=== PATIENT | female | born 1995 | race Caucasian/White ===

== ENCOUNTER 2020-10-13 10:05 | Outpatient (CLI) | payer OTHER, SELFPAY ==
--- NOTE | ~2020-10-13 | US_ITS ---
EXAMINATION: US venous doppler [facility] EXAM DATE: 10/13/2020 10:45 INDICATION: Bilateral leg pain and swelling. TECHNIQUE: Multiple grayscale, color flow and Doppler images of the lower extremity deep venous syste ms bilaterally were obtained and reviewed. There is no prior study for comparison. FINDINGS: Right side: The right common femoral, femoral and profunda veins demonstrate normal color flow, respi ratory variation, augmentation and compressibility. Compressibility, color flow confirmed within the right popliteal, posterior tibial, peroneal, and greater saphenous veins. Left side: The left common femoral, femoral and profunda veins demonstrate normal color flow, respira tory variation, augmentation and compressibility. Compressibility, color flow confirmed within the l eft popliteal, posterior tibial, peroneal, and greater saphenous veins. IMPRESSION: No lower extremity deep venous thrombosis bilaterally. Reviewed, dictated and finalized at location A.
== END 2020-10-13 10:06 | disposition home or self-care (01) ==
PROVIDERS: Visit Provider Obstetrics & Gynecology
DX: R22.43 Localized swelling, mass and lump, lower limb, bilateral (principal)
CPT/HCPCS: 93970

== ENCOUNTER 2020-11-23 09:43 | Outpatient (RCR) | payer OTHER, SELFPAY ==
[2020-10-18 12:25] VITALS: BP 115/69; PULSE 100
[2020-10-26 10:50] VITALS: BP 105/64; PULSE 114
[2020-10-29 09:50] VITALS: BP 117/71; PULSE 108
[2020-11-01 11:10] VITALS: BP 123/82
[2020-11-05 11:59] VITALS: BP 120/68; PULSE 110
[2020-11-08 12:51] VITALS: BP 107/67; PULSE 106
[2020-11-12 13:10] VITALS: BP 112/70; PULSE 117
--- NOTE | ~2020-11-23 | US_ITS ---
EXAMINATION: US OB follow up DATE: 11/01/2020 11:27 INDICATION: Gestational diabetes. Assess well being and amniotic fluid index during third trime ster . TECHNIQUE: Real-time ultrasound of the pelvis was performed. The interpreting radiologist was not pre sent for the study. COMPARISON: None. FINDINGS: There is a single living fetus in vertex presentation. The placenta is anterior. heart rate is 171 beats per minute (bpm). The amniotic fluid index is 18.7 cm, which is normal (5th%-95%: 8.1-24. 8 cm at 34 weeks estimated gestational age). The following biometric data were obtained: BPD: 8.7 cm -> 35 weeks 2 days Head circumference: 31.0 cm -> 34 weeks 5 days Abdominal circumference: 32.2 cm -> 36 weeks 1 days Femur length: 6.5 cm -> 33 weeks 2 days These measurements are concordant. Head circumference to abdominal circumference ratio: 0.96 (normal range 0.93-1.11). Estimated weight: 2610 g (+/-) 391 g or 5 lbs. 12 oz. (+/-) 14 oz. IMPRESSION: 1. Single living fetus in vertex presentation with heart rate of 171 bpm. 2. Normal amniotic fluid index of 18.7 cm. 3. Estimated weight is 63rd percentile by Hadlock criteria when 12/09/2020 is used as the estima romelia date of delivery (PAM). Please correlate with clinical information or earlier ultrasounds for mos t accurate PAM. Reviewed, dictated and finalized at location A. IMPRESSION: 1. Single living fetus in vertex presentation with heart rate of 171 bpm. 2. Normal amniotic fluid index of 18.7 cm. 3. Estimated weight is 63rd percentile by Hadlock criteria when 12/09/2020 is used as the estimated date of delivery (PAM). Please correlate with clinica l information or earlier ultrasounds for most accurate PAM.
[2020-11-23 10:27] VITALS: BP 136/82; PULSE 110
== END 2020-11-30 07:41 | disposition home or self-care (01) ==
LOC: ANHOBOP 09:43
PROVIDERS: Visit Provider Obstetrics & Gynecology
DX: O24.913 Unspecified diabetes mellitus in pregnancy, third trimester (principal); Z3A.32 32 weeks gestation of pregnancy; Z3A.33 33 weeks gestation of pregnancy; O24.419 Gestational diabetes mellitus in pregnancy, unspecified control; Z3A.34 34 weeks gestation of pregnancy; Z3A.35 35 weeks gestation of pregnancy; Z3A.36 36 weeks gestation of pregnancy; Z3A.37 37 weeks gestation of pregnancy
CPT/HCPCS: 59025; 76816; 84112

== ENCOUNTER 2020-11-23 21:10 | Outpatient (CLI) | payer OTHER, SELFPAY | END 2020-11-23 21:11 | disposition home or self-care (01) | LOC: ANHOBOP 21:47 | PROVIDERS: Visit Provider Obstetrics & Gynecology | DX: O13.9 Gestational [pregnancy-induced] hypertension without significant proteinuria, unspecified trimester (principal); Z3A.00 Weeks of gestation of pregnancy not specified | CPT/HCPCS: 59025; 84112 ==

== ENCOUNTER 2020-11-25 06:16 | Inpatient (IN) | payer OTHER, SELFPAY ==
[2020-11-25] VITALS (69 sets, daily range): BP systolic 99–139; BP diastolic 56–104; PULSE 78–122; RESP 18–20; TEMP 36.7–37.2; O2SAT 98–100
[2020-11-25] MEDS: OXYTOCIN 30 UNITS/NS 500 ML 30 UNITS/500 ML BAG IV CONT (07:15)
[2020-11-25] MEDS: LACTATED RINGERS 1,000 ML 125 ML IV CONT ×2 (07:15→10:06)
[2020-11-25] MEDS: AMPICILLIN 2 GM/NS 100 ML 2 GM/100 ML BAG IVPB (07:15)
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
[2020-11-25 07:24] LABS: Glucose Point of Care 117 mg/dl (65-105)
--- NOTE | 2020-11-25 07:29 | LDADM ---
This patient, Mary Grace Sandoval, was admitted to Labor/Delivery/Recovery 104 on 11/25/20 at 06:16. Plans for labor, pain management and were discussed with patient. Patient/family oriented to hospital policies and general routines including ID bracelet, bed and alarms, visiting hours, pain management, procedures, bathroom and other care routines, personal items, smoking policy, room service/diet and guest tray routines, security routines, call light and visiting hours. Patient/Family are encouraged to report perceived risks to care and to ask questions if they do not understand what they are told or what they should do. See OBIX for further documentation.
[2020-11-25 07:33] LABS: Basophils Absolute Auto 0.1 K/mm3 (0.0-0.1); Basophils Percent Auto 0.5 % (0.2-1.2); Eosinophils Absolute Auto 0.4 K/mm3 (0-0.3); Eosinophils Percent Auto 3.7 % (0-4.4); Hematocrit 37.4 % (37.0-47.0); Hemoglobin 13.1 g/dL (12.0-15.0); Immature Granulocyte Absolute 0.08 K/mm3 (0.00-0.031); Immature Granulocyte Percent A 0.8 % (0-0.5); Lymphocytes Absolute Auto 1.86 K/mm3 (0.9-3.2); Lymphocytes Percent Auto 18.6 % (18.3-44.2); Mean Corpuscular Hemoglobin 31.3 pg (26-34); Mean Corpuscular Volume 89.3 fl (80-100); Mean Platelet Volume 10.6 fl (7.4-10.4); Monocytes Absolute Auto 0.9 K/mm3 (0.1-0.6); Monocytes Percent Auto 8.7 % (2.6-8.5); Neutrophils Absolute Auto 6.8 K/mm3 (1.3-6.7); Neutrophils Percent Auto 67.7 % (45.5-73.1); Platelet Count Result 222 k/mm3 (150-375); Red Blood Count 4.19 M/mm3 (4.2-5.4); Red Cell Distribution Width 13.1 % (11.5-14.5)
[2020-11-25 08:52] LABS: Hepatitis B Surface Antigen Negative (Negative)
[2020-11-25 09:01] LABS: Rubella IgG Antibody 10.1 IU/ML
--- NOTE | 2020-11-25 10:09 | WPDANESEPP ---
Anes - Eval Pre Procedure Procedure: Labor epidural Date/Time: 11/25/20 10:09 Surgeon: Evelyn Preop Diagnosis: pain during labor Pre Op Diagnosis: iol Patient Data Age: 25 Gender: F Height: 1.63 m Weight: 102.5 kg Last Vital Signs Pulse 104 H 11/25/20 10:07 BP 118/68 11/25/20 10:07 Pulse Ox 100 11/25/20 10:05 Allergies Allergy/AdvReac Type Severity Reaction Status Date / Time No Known Allergies Allergy Verified 11/25/20 07:48 Home Medications Medication Instructions Recorded Confirmed Type Humulin N NPH U-100 Insulin 20 unit SUBCUT QAM 10/29/20 11/25/20 History PNV cmb#95-ferrous fumarate-FA 1 tablet PO DAILY 10/29/20 11/25/20 History [] insulin lispro [Humalog U-100 14 unit SUBCUT QAM 10/29/20 11/25/20 History Insulin] insulin lispro [Humalog U-100 14 unit SUBCUT QPM 10/29/20 11/25/20 History Insulin] ergocalciferol (vitamin D2) 1,250 mcg PO WEEKLY 11/12/20 11/25/20 History [Vitamin D2] insulin NPH isoph U-100 human 14 unit SUBCUT HS 11/12/20 11/25/20 History [Humulin N NPH U-100 Insulin] Laboratory Tests 11/25/20 11/25/20 11/25/20 07:20 07:21 07:21 WBC 10.0 K/mm3 K/mm3 (4.5-10.0) RBC 4.19 M/mm3 L M/mm3 (4.2-5.4) Hgb 13.1 g/dL g/dL (12.0-15.0) Hct 37.4 % % (37.0-47.0) MCV 89.3 fl fl (80-100) MCH 31.3 pg pg (26-34) MCHC 35.0 g/dl g/dl (32-36) RDW 13.1 % % (11.5-14.5) Plt Count 222 k/mm3 k/mm3 (150-375) MPV 10.6 fl H fl (7.4-10.4) Immature Gran % (Auto) 0.8 % H % (0-0.5) Neut % (Auto) 67.7 % % (45.5-73.1) Lymph % (Auto) 18.6 % % (18.3-44.2) [place] % (Auto) 8.7 % H % (2.6-8.5) Eos % (Auto) 3.7 % % (0-4.4) Baso % (Auto) 0.5 % % (0.2-1.2) Lymph # (Auto) 1.86 K/mm3 K/mm3 (0.9-3.2) [place] # (Auto) 0.9 K/mm3 H K/mm3 (0.1-0.6) Eos # (Auto) 0.4 K/mm3 H K/mm3 (0-0.3) Baso # (Auto) 0.1 K/mm3 K/mm3 (0.0-0.1) Abs Immat Gran (auto) 0.08 K/mm3 H K/mm3 (0.00-0.031) Absolute Neuts (auto) 6.8 K/mm3 H K/mm3 (1.3-6.7) Absolute Nucleated RBC 0.0 K/mm3 K/mm3 (0.0-0.012) Nucleated RBC % 0.0 % % (0.0-0.2) POC Capillary Glucose 117 mg/dl H mg/dl (65-105) RPR Pending Hep Bs Antigen Rubella IgG Antibody Blood Type Antibody Screen 11/25/20 11/25/20 11/25/20 07:21 07:21 07:21 WBC RBC Hgb Hct MCV MCH MCHC RDW Plt Count MPV Immature Gran % (Auto) Neut % (Auto) Lymph % (Auto) [place] % (Auto) Eos % (Auto) Baso % (Auto) Lymph # (Auto) [place] # (Auto) Eos # (Auto) Baso # (Auto) Abs Immat Gran (auto) Absolute Neuts (auto) Absolute Nucleated RBC Nucleated RBC % POC Capillary Glucose RPR Hep Bs Antigen Negative (Negative) Rubella IgG Antibody 10.1 IU/ML IU/ML (10 - ) Blood Type B Positive Antibody Screen Negative Patient hx anesthesia problems: none Family hx anesthesia problems: none PMFSH Past Medical History Medical History (Updated 11/25/20 @ 10:10 by Юлия Yao CRNA) IUP (intrauterine ), incidental Family History Family History Grandparent Carcinoma of colon Diabetes mellitus Mother Family history of malignant neoplasm of cervix Sibling Down syndrome Social History Social History Smoking status: Never smoker Alcohol intake: current
[2020-11-25 10:25] LABS: Rapid Plasma Reagin Non-Reactive (NonReactive)
[2020-11-25] MEDS: AMPICILLIN 1 GM/NS 50 ML 1 GM/50 ML BAG IVPB (11:27)
--- NOTE | 2020-11-25 11:30 | P.PNOB_ITS ---
OB - PN: Subj Subjective Date/time seen: 11/25/20 11:30 cx rim/fhts reassuring OB - PN: Obj Data Labs CBC & Chem 7: 11/25/20 07:21 Labs: Laboratory Results - last 24 hr 11/25/20 11/25/20 11/25/20 07:20 07:21 07:21 WBC 10.0 RBC 4.19 L Hgb 13.1 Hct 37.4 MCV 89.3 MCH 31.3 MCHC 35.0 RDW 13.1 Plt Count 222 MPV 10.6 H Immature Gran % (Auto) 0.8 H Neut % (Auto) 67.7 Lymph % (Auto) 18.6 [place] % (Auto) 8.7 H Eos % (Auto) 3.7 Baso % (Auto) 0.5 Lymph # (Auto) 1.86 [place] # (Auto) 0.9 H Eos # (Auto) 0.4 H Baso # (Auto) 0.1 Abs Immat Gran (auto) 0.08 H Absolute Neuts (auto) 6.8 H Absolute Nucleated RBC 0.0 Nucleated RBC % 0.0 POC Capillary Glucose 117 H RPR Non-reactive Hep Bs Antigen Rubella IgG Antibody Blood Type Antibody Screen 11/25/20 11/25/20 11/25/20 07:21 07:21 07:21 WBC RBC Hgb Hct MCV MCH MCHC RDW Plt Count MPV Immature Gran % (Auto) Neut % (Auto) Lymph % (Auto) [place] % (Auto) Eos % (Auto) Baso % (Auto) Lymph # (Auto) [place] # (Auto) Eos # (Auto) Baso # (Auto) Abs Immat Gran (auto) Absolute Neuts (auto) Absolute Nucleated RBC Nucleated RBC % POC Capillary Glucose RPR Hep Bs Antigen Negative Rubella IgG Antibody 10.1 Blood Type B Positive Antibody Screen Negative OB - PN A/P Time Spent With Patient Time: Total time spent is greater than 50% in coordination of care (as documented) at patient's floor/unit and/or counseling patient:
[2020-11-25 11:34] LABS: Glucose Point of Care 97 mg/dl (65-105)
--- NOTE | 2020-11-25 13:49 | P.PCNOB_ITS ---
OB - Delivery Note Procedure Delivery date: 11/25/20 Procedure: mil events: Gestational Diabetes Intrapartal events: None Induction method: AROM Delivery augmentation: pitocin Delivery monitor: external FHT Route of delivery: Laceration Description: Perineal - 1st Degree Delivery repair: vicryl Specimen: No Quantitative Blood Loss (ml): 58 Anesthesia type: Epidural Disposition: floor Complications: amp x 2 for gbs [place] Baby Date of : 11/25/20 Time of : 13:41 Weeks of gestation at delivery: 38 Infant gender: Female Weight (pounds): 6 Weight (ounces): 12 presentation: vertex position: Right Occiput Anterior Placenta delivery description: Spontaneous cord vessel description: 3 Vessels score one minute: 9 score five minutes: 9
[2020-11-25] MEDS: OXYTOCIN 30 UNITS/NS 500 ML 30 UNITS/500 ML BAG 125 UNITS IV CONT (14:20)
[2020-11-25] MEDS: WITCH HAZEL 40 PADS 1 PAD (16:15)
[2020-11-25] MEDS: BENZOCAINE 20% AER SPR (*SP) 56 GM CAN 1 SPRAY (16:15)
[2020-11-25] MEDS: IBUPROFEN 600 MG TABLET PO (19:03)
--- NOTE | 2020-11-25 19:39 | PC.NURSE ---
1626 Pt admitted to room 287 per wheelchair after vaginal delivery of viable female today at [address] Carey Nixon. Mother is a now. FOB present; Couple oriented to room, staffing and procedures; pt's VSS and assessment WNL.
[2020-11-26] MEDS: IBUPROFEN 600 MG TABLET PO ×3 (01:43→20:53)
[2020-11-26 04:00] VITALS: BP 105/65; PULSE 76; RESP 18; TEMP 36.6; O2SAT 99
[2020-11-26 05:45] LABS: Hematocrit 35.4 % (37.0-47.0); Hemoglobin 12.4 g/dL (12.0-15.0)
--- NOTE | 2020-11-26 06:38 | PM.OBPNVD ---
OB - PN: Subj Subjective Date/time seen: 11/26/20 06:38 Patient comments: no complaints and pain well controlled baby status: doing well and nursing well OB - PN: Obj Data Labs CBC & Chem 7: 11/26/20 04:13 Labs: Laboratory Results - last 24 hr 11/25/20 11/25/20 11/25/20 07:20 07:21 07:21 WBC 10.0 RBC 4.19 L Hgb 13.1 Hct 37.4 MCV 89.3 MCH 31.3 MCHC 35.0 RDW 13.1 Plt Count 222 MPV 10.6 H Immature Gran % (Auto) 0.8 H Neut % (Auto) 67.7 Lymph % (Auto) 18.6 [place] % (Auto) 8.7 H Eos % (Auto) 3.7 Baso % (Auto) 0.5 Lymph # (Auto) 1.86 [place] # (Auto) 0.9 H Eos # (Auto) 0.4 H Baso # (Auto) 0.1 Abs Immat Gran (auto) 0.08 H Absolute Neuts (auto) 6.8 H Absolute Nucleated RBC 0.0 Nucleated RBC % 0.0 POC Capillary Glucose 117 H RPR Non-reactive Hep Bs Antigen Rubella IgG Antibody Blood Type Antibody Screen 11/25/20 11/25/20 11/25/20 07:21 07:21 07:21 WBC RBC Hgb Hct MCV MCH MCHC RDW Plt Count MPV Immature Gran % (Auto) Neut % (Auto) Lymph % (Auto) [place] % (Auto) Eos % (Auto) Baso % (Auto) Lymph # (Auto) [place] # (Auto) Eos # (Auto) Baso # (Auto) Abs Immat Gran (auto) Absolute Neuts (auto) Absolute Nucleated RBC Nucleated RBC % POC Capillary Glucose RPR Hep Bs Antigen Negative Rubella IgG Antibody 10.1 Blood Type B Positive Antibody Screen Negative 11/25/20 11/26/20 11:29 04:13 WBC RBC Hgb 12.4 Hct 35.4 L MCV MCH MCHC RDW Plt Count MPV Immature Gran % (Auto) Neut % (Auto) Lymph % (Auto) [place] % (Auto) Eos % (Auto) Baso % (Auto) Lymph # (Auto) [place] # (Auto) Eos # (Auto) Baso # (Auto) Abs Immat Gran (auto) Absolute Neuts (auto) Absolute Nucleated RBC Nucleated RBC % POC Capillary Glucose 97 RPR Hep Bs Antigen Rubella IgG Antibody Blood Type Antibody Screen OB - PN A/P Plan day: 1 Plan: routine care Time Spent With Patient Time: Total time spent is greater than 50% in coordination of care (as documented) at patient's floor/unit and/or counseling patient: Time with patient: less than 15 minutes Review of Systems Review of Systems: All systems reviewed & are unremarkable except as noted in HPI and below Exam Const: General: no acute distress Eyes: General: appearance normal, both eyes and all related structures Neck: Neck: supple and no JVD Thyroid: thyroid normal Resp: Effort & Inspection: normal respiratory effort Auscultation: clear to auscultation bilaterally Cardio: Rate: regular rate Rhythm: regular rhythm GI: Inspection: non-distended GI Palp: Yes Soft to palpation, No Tenderness to palpation present (GI) and No Guarding due to palpation present (GI) Auscultation: normal bowel sounds : General: Yes bladder normal to palpation External Female Exam: normal external appearance Speculum Exam - Vagina: normal vaginal discharge and No vaginal bleeding Speculum Exam - Cervix: nontender Bimanual exam- vagina & uterus: bladder normal to palpation and No Cervical tenderness present OB/external & speculum: No vaginal bleeding Skin: General skin exam: no rashes or lesions noted Extrem: General: normal to inspection and no edema Psych: Mental Status: mental status grossly normal Affect: normal affect
[2020-11-26 09:00] VITALS: BP 112/69; PULSE 77; RESP 18; TEMP 36.3; O2SAT 100
--- NOTE | 2020-11-26 09:47 | WPDANLDPN2 ---
Anes-Prog Note L&D Date/Time: 11/26/20 09:47 Comfortable throughout: labor and delivery Neuraxial method: epidural Epidural/Spinal procedure site: clean & non-tender Neuro status: Neuro function grossly intact. Cardiovascular status: normal Respiratory status: normal Airway patency: baseline Mental status: baseline Post-Op hydration status: normal Vital Signs: Last Vital Signs Temp 36.6 C 11/26/20 04:00 Pulse 76 11/26/20 04:00 Resp 18 11/26/20 04:00 BP 105/65 11/26/20 04:00 Pulse Ox 99 11/26/20 04:00 Pain score (VAS): 07/11 I/O: Intake & Output 11/25/20 11/26/20 11/26/20 23:59 07:59 15:59 Intake Total 1500 Balance 1500 Post-procedural complaints: none Patient feedback: Patient satisfied with anesthetic care.
[2020-11-26 12:00] VITALS: BP 112/69; PULSE 83; RESP 18; TEMP 36.5; O2SAT 99
[2020-11-26] MEDS: WITCH HAZEL 40 PADS 1 PAD TOPICAL (16:55)
[2020-11-26 19:00] VITALS: BP 114/66; PULSE 77; RESP 18; TEMP 36.5
--- NOTE | 2020-11-26 19:00 | PC.NURSE ---
Patient viewed the discharge video Mother & Baby Care, The First Two Weeks online. Patient was given the opportunity and encouraged to ask questions. Patient verbalized understanding of information shared and has been given the mother/baby guide for home reference.
[2020-11-27] MEDS: IBUPROFEN 600 MG TABLET PO (04:35)
--- NOTE | 2020-11-27 07:09 | P.DS_ITS ---
DS: Admitting Diagnosis Admitting Diagnosis Admitting Diagnosis: Term intrauterine with insulin-dependent diabetes DS: Summary Hospital Course Hospital Course: the patient was admitted at term for induction of labor secondary to gestational diabetes that required insulin. She underwent successful spontaneous vaginal delivery. Her hospital course was unremarkable. She was up, ambulating, voiding that difficulty, eating regular diet, and generally without complaints. Time Spent with Patient Time attestation: Total time spent providing and/or coordinating discharge services: Exam Const: General: no acute distress Eyes: General: appearance normal, both eyes and all related structures Neck: Neck: supple and no JVD Thyroid: thyroid normal Resp: Effort & Inspection: normal respiratory effort Auscultation: clear to auscultation bilaterally Cardio: Rate: regular rate Rhythm: regular rhythm GI: Inspection: non-distended GI Palp: Yes Soft to palpation, No Tenderness to palpation present (GI) and No Guarding due to palpation present (GI) Auscultation: normal bowel sounds : General: Yes bladder normal to palpation External Female Exam: normal external appearance Speculum Exam - Vagina: normal vaginal discharge and No vaginal bleeding Speculum Exam - Cervix: nontender Bimanual exam- vagina & uterus: bladder normal to palpation and No Cervical tenderness present OB/external & speculum: No vaginal bleeding Skin: General skin exam: no rashes or lesions noted Extrem: General: normal to inspection and no edema Psych: Mental Status: mental status grossly normal Affect: normal affect Discharge Plan Discharge Attending physician on discharge: Mark Sweeney Discharging Clinician: Mark Sweeney Patient Disposition: Home, Self-Care Activity: may shower, no driving and pelvic rest Diet: diabetic Wound Care Instructions: follow printed instructions Patient Instructions: Antibiotic Form Stand Alone Forms: General Discharge Information Follow-up/Referrals: Mark Sweeney MD [Physician] - Discharge Medications: Discontinued insulin lispro [Humalog U-100 Insulin] 100 unit/mL Solution 14 unit SUBCUT QAM RF: 0 Humulin N NPH U-100 Insulin 20 unit subcut QAM RF: 0 insulin lispro [Humalog U-100 Insulin] 100 unit/mL Solution 14 unit SUBCUT QPM RF: 0 Humulin N NPH U-100 Insulin 100 unit/mL Suspension 14 unit SUBCUT HS RF: 0 No Action PNV cmb#95-ferrous fumarate-FA [] 28 mg iron- 800 mcg Tablet 1 tablet PO DAILY RF: 0 ergocalciferol (vitamin D2) [Vitamin D2] 1,250 mcg (50,000 unit) Capsule 1,250 mcg PO WEEKLY RF: 0 Date of admission: 11/25/20 06:16 Primary Care Provider: PHYSICIAN,ELECTRONICS TECHNICIAN APPRENTICE Admitting Provider: Mark Sweeney Attending physician on admission: Mark Sweeney Condition: Stable
[2020-11-27 07:15] VITALS: BP 122/69; PULSE 81; RESP 18; TEMP 36.3; O2SAT 100
[2020-11-27] MEDS: WITCH HAZEL 40 PADS 1 PAD TOPICAL (08:55)
[2020-11-27] MEDS: BENZOCAINE 20% AER SPR (*SP) 56 GM CAN 1 SPRAY TOPICAL (08:55)
[2020-11-27] MEDS: ACETAMINOPHEN 325 MG TABLET 650 MG PO (08:56)
[2020-11-27] MEDS: DOCUSATE SODIUM 100 MG CAPSULE PO (08:56)
[2020-11-30 11:26] VITALS: BP 141/83; PULSE 85; RESP 18; TEMP 37.2; O2SAT 100
== END 2020-11-27 11:35 | disposition home or self-care (01) | DRG 560 ==
LOC: ANHLDR 07:18 → ANHOB2 16:31
PROVIDERS: Obstetrics & Gynecology; Admitting Provider Obstetrics & Gynecology; Visit Provider Obstetrics & Gynecology
DX: O24.429 Gestational diabetes mellitus in childbirth, unspecified control (principal); O70.0 First degree perineal laceration during delivery; O24.424 Gestational diabetes mellitus in childbirth, insulin controlled; O98.52 Other viral diseases complicating childbirth; B00.9 Herpesviral infection, unspecified; Z3A.38 38 weeks gestation of pregnancy; Z37.0 Single live birth
CPT/HCPCS: 36415; 82948; 85014; 85018; 85025; 86592; 86762; 86850; 86900; 86901; 87340; A9270; J0290; J2590; J2795; J7120

== ENCOUNTER 2024-01-22 17:09 | Emergency (ER) | payer OTHER, SELFPAY ==
--- NOTE | ~2024-01-22 | CT_ITS ---
CT OF right knee EXAMINATION: CT knee RT w con DATE: 01/22/2024 19:58 INDICATION: Severe knee pain following nail puncture in knee. TECHNIQUE: Computed tomography (CT) of the right knee was performed without intravenous contrast. Aut omated exposure control and iterative reconstruction technique were employed. The dose-length product was 406.91 mGy-cm. COMPARISON: None FINDINGS: Normal mineralization. No fracture or dislocation. No lytic or blastic lesion. No osseous erosion or suspicious periosteal change. Moderate volume knee joint fluid with synovial enhancement. No obvious internal derangement of the knee. No radiopaque foreign body. No definite skin defect correlating wit h the nail injury is appreciated. IMPRESSION: No acute osseous finding in the right knee. Moderate volume knee joint effusion with synovial enhancement, indicative of inflammation. No foreign body, no definite tract extending to the joint capsule, no subcutaneous gas. Reviewed, dictated and finalized at location K. IMPRESSION: No acute osseous finding in the right knee. Moderate volume knee joint effusion with synovial enhancement, indicative of in flammation. No foreign body, no definite tract extending to the joint capsule, no subcutane ous gas.
[2024-01-22 17:11] VITALS: BP 128/76; PULSE 114; RESP 17; TEMP 36.8; O2SAT 100
--- NOTE | 2024-01-22 18:20 | ED.WOUNDLAC ---
HPI - Wound/Laceration General Chief Complaint: Wound/Laceration Stated Complaint: wound right leg Time Seen by Provider: 01/22/24 18:06 History of Present Illness HPI narrative: 28-year-old female presenting with right knee pain. Patient states that she was working outside with her grandpa when a nail flew out of the piece of wood and struck her in her right knee. States that it fell out on its own and blood for a little while but she is sound everything was fine. She then was able to go to work. States that after about an hour she developed severe right knee pain especially with weight-bearing and ambulation. States she has severe pain when she tries to bend it. She went to urgent care who updated her tetanus within advised that she come to the ED for further evaluation. No further injuries or complaints. Related Data Allergies Allergy/AdvReac Type Severity Reaction Status Date / Time amoxicillin AdvReac Rash Verified 01/22/24 18:09 Review of Systems Review of Systems: All systems reviewed & are unremarkable except as noted in HPI and below PMFSH Past Medical History Medical History IUP (intrauterine ), incidental Family History Family History Grandparent Carcinoma of colon Diabetes mellitus Mother Family history of malignant neoplasm of cervix Sibling Down syndrome Social History Social History Smoking status: Never smoker Alcohol intake: current Substance use: never Gender identity (if verbalized by the patient): Female Spiritual care concerns: No Exam Narrative: GENERAL: Well-appearing, in no acute distress, pleasant cooperative HEAD: Normocephalic, atraumatic. EYES: PERRLA and EOMI. ENT: Grossly unremarkable NECK: Supple. CHEST: No respiratory distress. HEART: Regular rate and rhythm EXTREMITIES: small puncture wound medial to the right knee, tender over the patellar tendon and diffusely anteriorly; no overlying erythema or warmth; knee extension is intact, flexion is somewhat limited secondary to pain SKIN: Warm, dry, as above NEURO: No focal deficits. Alert and oriented x3. PSYCH: Normal mood and affect. Course Vital Signs Vital signs: Vital Signs Temperature 98.2 F 01/22/24 17:11 Pulse Rate 114 H 01/22/24 17:11 Respiratory Rate 17 01/22/24 17:11 Blood Pressure 128/76 01/22/24 17:11 Pulse Oximetry 100 01/22/24 17:11 Oxygen Delivery Room Air 01/22/24 17:11 Temperature 98.2 F 01/22/24 17:11 Pulse Rate 114 H 01/22/24 17:11 Respiratory Rate 17 01/22/24 17:11 Blood Pressure 128/76 01/22/24 17:11 Pulse Oximetry 100 01/22/24 17:11 Oxygen Delivery Room Air 01/22/24 17:11 MDM - Wound/Laceration MDM Narrative Medical decision making narrative: 28-year-old female presenting with right knee pain after a puncture wound with a nail. Vitals are stable. Exam remarkable for the above. Blood work with mild leukocytosis. CT of the knee was obtained and shows a joint effusion with some synovial inflammation but no evidence of subcutaneous gas, disruption of the joint capsule, or retained foreign body. Will cover the patient with Keflex and doxycycline. Her tetanus has already been updated. Advise orthopedic and PCP follow-up. Appropriate return precautions given. Discharged in stable condition. Lab Data 01/22/24 18:27 01/22/24 18:27 Labs: Lab Results 01/22/24 Range/Units 18:27 WBC 13.8 H (4.5-10.0) K/mm3 RBC 4.42 (4.2-5.4) M/mm3 Hgb 13.5 (12.0-15.0) g/dL Hct 39.3 (37.0-47.0) % MCV 88.9 (80-100) fl MCH 30.5 (26-34) pg MCHC 34.4 (32-36) g/dl RDW 13.2 (11.5-14.5) % Plt Count 264 (150-375) k/mm3 MPV 10.6 H (7.4-10.4) fl Immature Gran % (Auto) 0.4 (0-0.5) % Neut % (Auto) 76.6 H (45.5-
[2024-01-22 18:32] LABS: Basophils Absolute Auto 0.1 K/mm3 (0.0-0.1); Basophils Percent Auto 0.7 % (0.2-1.2); Eosinophils Absolute Auto 0.4 K/mm3 (0-0.3); Eosinophils Percent Auto 3.1 % (0-4.4); Hematocrit 39.3 % (37.0-47.0); Hemoglobin 13.5 g/dL (12.0-15.0); Immature Granulocyte Absolute 0.05 K/mm3 (0.00-0.031); Immature Granulocyte Percent A 0.4 % (0-0.5); Lymphocytes Absolute Auto 1.82 K/mm3 (0.9-3.2); Lymphocytes Percent Auto 13.2 % (18.3-44.2); Mean Corpuscular HGB Conc 34.4 g/dl (32-36); Mean Corpuscular Hemoglobin 30.5 pg (26-34); Mean Corpuscular Volume 88.9 fl (80-100); Mean Platelet Volume 10.6 fl (7.4-10.4); Monocytes Absolute Auto 0.8 K/mm3 (0.1-0.6); Neutrophils Absolute Auto 10.5 K/mm3 (1.3-6.7); Neutrophils Percent Auto 76.6 % (45.5-73.1); Platelet Count Result 264 k/mm3 (150-375); Red Blood Count 4.42 M/mm3 (4.2-5.4); Red Cell Distribution Width 13.2 % (11.5-14.5); White Blood Count 13.8 K/mm3 (4.5-10.0)
[2024-01-22 18:56] LABS: Anion Gap 11 mmol/L (4-12); Blood Urea Nitrogen 15 mg/dL (7-17); Calcium 8.9 mg/dL (8.4-10.2); Carbon Dioxide 29 mmol/L (22-30); Chloride 97 mmol/L (98-107); Estimated CRCL calculation 85 ml/min; Estimated Glomerular Filt Rate > 60; Glucose 162 mg/dL (65-110); Potassium 4.1 mmol/L (3.4-5.0); Sodium 137 mmol/L (137-145)
[2024-01-22] MEDS: DOXYCYCLINE HYCLATE 100 MG TABLET PO (20:57)
[2024-01-22] MEDS: CEPHALEXIN 500 MG CAPSULE PO (20:57)
== END 2024-01-22 21:15 | disposition home or self-care (01) ==
PROVIDERS: Emergency Provider Emergency Medicine
DX: M25.461 Effusion, right knee (principal); S81.031A Puncture wound without foreign body, right knee, initial encounter; W45.0XXA Nail entering through skin, initial encounter
CPT/HCPCS: 36415; 73701; 80048; 81025; 85025; 99284; A9270; Q9967

== ENCOUNTER 2024-09-06 20:33 | Emergency (ER) | payer OTHER, SELFPAY ==
[2024-09-06 20:34] VITALS: BP 127/81; PULSE 99; RESP 14; TEMP 36.6; O2SAT 99
--- OUTSIDE RECORDS SUMMARY | 2024-09-06 20:35 | XMS_ITS | Referral Summary ---
Author Organization [facility] Address [address] [address] Care Team Providers Care Bilingual Case Manager Name Role Phone Unavailable Primary Care Provider Unavailabl e Source Comments [facility],non-owned Affiliates and Associated Physician Practices is amultiple site organization consisting of ambulatory clinics and hospital sitesin [place], [place], [place] and [place]. This disclosure is being madepursuant to the Care Everywhere program and may not contain all information available regarding this patient. Last updated 18.[facility] [employer] Allergies Active Allergy Reactions Criticality Noted Date Comments Amoxicillin Other Low 12/30/2019 Yeast infection Medications * Be aware that medications may not be up to date on this document. Alwaysverify current medications with the patient. Medication Sig Dispensed Refills Start Date End Date Status nystatin (MYCOSTATIN) 395090 UNIT/ML suspension 10/22/2020 Active vitamin D, ergocalciferol, (DRISDOL) 1.25 MG (77289 UT) capsule 10/21/2020 Active Vit-Fe Fumarate-FA ( VITAMIN) 28-0.8 MG tablet Take 1 tablet by mouth once daily Active HUMALOG vial Inject 14u before breakfast, 14u before dinner. Take dosage 0-15 minutes prior to meal. 1 vial 5 10/25/2020 Active HUMULIN N vial Inject 20u before breakfast, 14u before bed. 2 vial 5 10/25/2020 Active TRUEPLUS INSULIN SYRINGE 31G X 16 1 ML syringe To inject insulin 3x daily- before breakfast, before dinner, and at bedtime. 100 Each 10/25/2020 Active blood glucose (ONETOUCH VERIO) test strip To test blood sugar before meals, 1 hour after meals, and at bedtime, 7x daily 200 strip 5 10/25/2020 Active Glucagon, rDNA, (GLUCAGON EMERGENCY) 1 MG KIT Use as needed to treat severe hypoglycemia 1 kit 1 10/25/2020 Active Active Problems Problem Noted Date Diagnosed Date GDM (gestational diabetes mellitus) 10/22/2020 Overview (10/22/2020): GCT: 206 GTT: 165 311 311 262 Supervision of high-risk of young jeannette igravida 10/22/2020 Overview (10/22/2020): Consult: Fam Garcia PNL: B+, Hep B Neg, RPR Neg Ab: Neg GCT:206 HIV: NR GBS: Dating: H/H/Plt: 13.1/38.3/213 Hgb Elec: UDS: QS: CF: Pap: NILM. Record scanned into media. Gc/Chl: NegNeg UCx: No growth Breast/Bottle: Family Planning: Screening, , for malformation by ultras ound Maternal obesity affecting , antepartum Polyhydramnios, antepartum complication 33 weeks gestation of Social History Tobacco Use Types Packs/Day Years Used Date Smoking Tobacco: Never Assessed Sex and Gender Information Value Date Recorded Sex Assigned at Not on file Gender Identity Not on file Sexual Orientation Not on file Last Filed Vital Signs Vital Sign Reading Time Taken Comments Blood Pressure 123/78 10/25/2020 9:29 AM CDT Pulse 112 10/25/2020 9:29 AM CDT Temperature - - Respiratory Rate - - Oxygen Saturation - - Inhaled Oxygen Concentration - - Weight 102.5 kg (226 lb) 10/25/2020 9:29 AM CDT Height - - Body Mass Index - - Plan of Treatment Not on file Procedures Procedure Name Priority Date/Time Associated Diagnosis Comments HIV-1 HIV-2 ANTIBODY W/ REFLX CONFIRM Routine 09/24/2020 GLUCOSE CHALLENGE Routine 06/09/2020 from Last 3 Months or Most Recently Relevant to Health Maintenance Results * HIV-1 HIV-2 ANTIBODY W/ REFLX CONFIRM (09/24/2020) HIV-1/HIV-2 Non Reactive Blood BLOOD SPECIMEN / Unknown Historical Provider LAB - SEROLOGY OR DERABLES * GLUCOSE CHALLENGE (06/09/2020) GTT 1Hr 206 Blood BLOOD SPECIMEN / Unknown Historical Provider LAB - CHEMISTRY O RDERABLES from Last 3 Months or Most Recently Relevant to Health Maintenance Mary Grace Sandoval Personal/Family Self 1995 [id number] [place] [address]
--- OUTSIDE RECORDS SUMMARY | 2024-09-06 20:35 | XMS_ITS | Patient Health Summary ---
Author Organization [facility] Address [address] [place] [address] Care Team Providers Care Gate Services Supervisor Name Role Phone Unavailable Primary Care Provider Unavailabl e Note from [facility],non-owned Affiliates and Associated Physician Practices is amultiple site organization consisting of ambulatory clinics and hospital sitesin [place], [place], [place] and [place]. This disclosure is being madepursuant to the Care Everywhere program and may not contain all information available regarding this patient. Last updated 18.[facility] Allergies * Amoxicillin(Other) -Low Criticality Medications * Be aware that medications may not be up to date on this document. Alwaysverify current medications with the patient. * nystatin (MYCOSTATIN) 322783 UNIT/ML suspension(Started 10/22/2020) * vitamin D, ergocalciferol, (DRISDOL) 1.25 MG (11874 UT) capsule(Started 10/21/2020) * Vit-Fe Fumarate-FA ( VITAMIN) 28-0.8 MG tablet Take 1 tablet by mouth once daily * HUMALOG vial(Started 10/25/2020) Inject 14u before breakfast, 14u before dinner. Take dosage 0-15 minutes prior to meal. 5 refills by 10/25/2021 * HUMULIN N vial(Started 10/25/2020) Inject 20u before breakfast, 14u before bed. 5 refills by 10/25/2021 * TRUEPLUS INSULIN SYRINGE 31G X 5/16 1 ML syringe(Started 10/25/2020) To inject insulin 3x daily- before breakfast, before dinner, and at bedtime. 5 refills by 10/25/2021 * blood glucose (ONETOUCH VERIO) test strip(Started 10/25/2020) To test blood sugar before meals, 1 hour after meals, and at bedtime, 7x daily 5 refills by 10/25/2021 * Glucagon, rDNA, (GLUCAGON EMERGENCY) 1 MG KIT(Started 10/25/2020) Use as needed to treat severe hypoglycemia 1 refill by 10/25/2021 Active Problems Problem Noted Date Diagnosed Date GDM (gestational diabetes mellitus) 10/22/2020 Supervision of high-risk of eduin sibley 10/22/2020 Screening, , for malformation by ultras ound [...] - - Body Mass Index - - Procedures * URINALYSIS - POCT (IP) BEAKER INTERFACE(Performed 10/25/2020) * SONOGRAM - COMPLETE(Performed 10/25/2020) * HIV-1 HIV-2 ANTIBODY W/ REFLX CONFIRM(Performed 09/24/2020) * GLUCOSE CHALLENGE(Performed 06/09/2020) * PROFILE I W/ HBSAG(Performed 05/17/2020) Results * URINALYSIS - POCT (IP) BEAKER INTERFACE (10/25/2020 9:39 AM CDT) Color UA POCT Yellow Straw, Yellow, Dark Yellow, Light Yellow 10/25/2020 9:41 AM CDT [facility] Clarity UA POCT Clear 9:41 AM CDT [facility] Specific [place] UA POCT 1.025 1.005 - 1.030 10/25/2020 9:41 AM CDT [facility] pH UA POCT 6.5 5.0 - 8.0 pH 10/25/2020 9:41 AM CDT [facility] Protein UA POCT Negative Negative 9:41 AM CDT [facility] Blood UA POCT Negative Negative 10/25/2020 9:41 AM CDT [facility] Leukocyte UA POCT Negative Negative 10/25/2020 9:41 AM CDT [facility] Nitrite UA POCT Negative Negative 9:41 AM CDT [facility] Glucose UA POCT Negative Negative 9:41 AM CDT [facility] Ketone UA POCT Negative Negative 10/25/2020 9:41 AM CDT [facility] Bilirubin UA POCT Negative Negative 10/25/2020 9:41 AM CDT [facility] Urobilinogen UA POCT 0.2 0.1 - 1.0 EU/dL 10/25/2020 9:41 AM CDT [facility] Urine URINE / Unknown 10/25/2020 9 :39 AM CDT 10/25/2020 9:41 AM CDT Michele Stovall MD LAB - POINT OF CARE ORDERABLES Performing Organization Address City/State/[facility] Co de Phone Number [facility] [address] [place], [place] [id number] * SONOGRAM - COMPLETE (10/25/2020 8:23 AM CDT) Anatomical Region Laterality Modality Other 10/25/2020 8:23 AM CDT Narrative 10/25/2020 11:25 AM CDT [facility] PHONE: FAX: Pat. Name: MARY GRACE SANDOVAL Pat. No: [id number] Study Date: 10/25/2020 8:23am , Age: 08 1995, 25 Pregnancies: 2, Para 0 Height: 64 in Weight: 213 lb LMP: Unknown GA by US: 34w0d PAM: 12/06/2020 GA Selected: 33w4d (Outside Scan) PAM: 12/09/2020 Referring MD: Fam Garcia MD Hot Strip Mill Inspector: Carol Dasilva RDMS, RVT CPT4: 26708,97617 BMI: 36.56 Hist/Ind: GDM Class II Obesity Tobacco use Hx [facility]FD @ 17wks ([facility]) MEASUREMENTS & AGE GROWTH EVALUATION Measurement GA Range Srce %for GA Ratios ----- ---- ------- BPD 8.4 cm 34w0d (81h9p-02j3m) Hadl BPD 58% FL/BPD 0.76 (0.71 - 0.87) HC 30.9 cm 34w4d (83h8r-19g1i) Hadl HC 35% FL/AC 0.21 (0.20 - 0.24) AC 30.8 cm 34w5d (57k9e-61i4b) Hadl AC 82% HC/AC 1.01 (0.95 - 1.13) FL 6.4 cm 33w0d (63s8b-65a2v) Hadl FL 24% CI 0.79 (0.70 - 0.86) HL 5.6 cm 32w5d (89y9i-12n0x) Von HL 35% Cere 4.5 cm 34w5d (37b8x-37f2l) César Cere71% GA for sonogram 34w0d (64p8i-98v4q) Weight Estimate: based on (HL,BPD,HC,AC,FL,Cere) Avg Weight: 2361 gm (2016-2706gm) Had : 5lbs, 3oz Normal: 2291 gm (1719-2864gm) Had Wt% 59% for 33w4d Heart Rate: 166 bpm Amniotic Fluid Index: 29.2cm (08.2-24.7)* Q1: 8.4cm Q2: 9.4cm Q3: 5.6cm Q4: 5.8cm Biophysical Profile: 02/06 Breathin Tone: 2 Movement: 2 AFV: 2 EVAL, PLACENTA Presentation: cephalic Placenta: anterior Heart Rate: 166 bpm Amniotic Fluid Volume: polyhydramnios MATERNAL ANATOMY Right Desc: Appears normal Left Desc: Appears normal Anatomy!Normal!Abnormal!Suboptimal!Prev. Seen!Comments Cranium ! x ! ! ! ! Mdl (CSP/Thal! ! ! x ! ! Ventricles ! x ! ! ! ! Choroid Plexu! x ! ! ! ! Cerebellum ! x ! ! ! ! Cerebellar Ve! x ! ! ! ! Cisterna M. ! x ! ! ! ! Orbits ! ! ! x ! ! Profile ! x ! ! ! ! Nasal Bone ! x ! ! ! ! Lip ! x ! ! ! ! Maxilla ! x ! ! ! ! Mandible ! x ! ! ! ! Neck ! x ! ! ! ! Spine ! x ! ! ! ! Lungs ! ! ! x ! ! 4 Chamber Hea! ! ! x ! ! LVOT ! ! ! x ! ! RVOT ! x ! ! ! ! 3 Vessel View! x ! ! ! ! 3 Vessel Trac! ! ! x ! ! Cross-over ! x ! ! ! ! Ductal Arch ! x ! ! ! ! Aortic Arch ! ! ! x ! ! Caval View ! x ! ! ! ! Situs ! x ! ! ! ! Diaphragm ! x ! ! ! ! Stomach ! x ! ! ! ! Liver ! x ! ! ! ! Bowel ! ! ! x ! ! Kidneys ! ! ! x ! ! Bladder ! x ! ! ! ! 3 Vessel Cord! x ! ! ! ! Cord In! x ! ! ! ! Upper Extremi! ! ! x ! ! Hands ! ! ! x ! ! Lower Extremi! x ! ! ! ! Feet ! x ! ! ! ! External Denisha! ! ! ! !Female appearing Placental Cor! ! ! x ! ! CLINICAL SUMMARY Study Number: 1 A single fetus is seen in cephalic presentation. The measurements today are consistent with appropriate size for the PAM provided. The PAM is based on a prior outside ultrasound (confirmed). The amniotic fluid volume is increased. The anatomy was limited by position and gestational age. IMPRESSION: Single, live intrauterine at 33w4d size is consistent with established PAM Amniotic fluid volume: mild polyhydramnios No major malformations were seen within the limitations of ultrasound. Incomplete survey Reassuring biophysical profile RECOMMEND: testing as directed by Maternal- Medicine consultation Reassess growth between 37 to 38 weeks Thank you for allowing us they opportunity to care for your patient. Ayana Maxwell MD <Electronic Signature> 10/25/2020 11:10am Mark Valdez MD [facility] ORDERABLES * HIV-1 HIV-2 ANTIBODY W/ REFLX CONFIRM (09/24/2020) Pathologist [facility] HIV-1/HIV-2 Non Reactive Blood BLOOD SPECIMEN / Unknown Historical Provider LAB - SEROLOGY OR DERABLES * GLUCOSE CHALLENGE (06/09/2020) Pathologist [facility] GTT 1Hr 206 Blood BLOOD SPECIMEN / Unknown Historical Provider LAB - CHEMISTRY O RDERABLES * PROFILE I W/ HBSAG (05/17/2020) Pathologist [facility] Antibody Screen Neg ABO B Hepatitis B Virus Surface Antigen Negative Hematocrit 38.3 Hemoglobin 13.1 Platelet Count 213 Rh Type Positive RPR Negative Blood BLOOD SPECIMEN / Unknown Historical Provider LAB - CHEMISTRY O RDERABLES
--- OUTSIDE RECORDS SUMMARY | 2024-09-06 20:35 | XMS_ITS | Clinical Summary ---
Author Organization [facility] Address [address] [place] [address] Phone Care Team Providers Care Meat Service Team Member Name Role Phone Jessica Lindsey APRN, CNP Unavailable Jessica Lindsey APRN, CNP Primary Care P rovider Allergies Active Allergy Reactions Criticality Noted Date Comments Amoxicillin Other (see Comments) 12/27/2021 Gets a yeast infection Medications Levonorgest-Eth Estrad-Fe Bisg (Balcoltra) 0.1-20 MG-MCG(21) Tablet 09/14/2021 Active methotrexate 2.5 MG Tablet Take 15 mg by mouth 09/21/2023 Active folic acid (FOLVITE) 1 MG Tablet 1 tablet daily (take on all days that you do not take methotrexate) 09/21/2023 Active hydrOXYzine (ATARAX) 10 MG Tablet Take 25 mg by mouth every 6 hours as needed. Active Glucose Blood StripIndication s:Type 2 diabetes mellitus with hyperglycemia, without long-term current use of insulin (HCC) Use as directed 100 Each 3 12/27/2023 Active Lancets MiscIndications :Type 2 diabetes mellitus with hyperglycemia, without long-term current use of insulin (HCC) Use as directed 200 Lancet . 1 02/07/2024 Active gentamicin (GARAMYCIN) 0.1 % Cream as needed. 03/25/2024 Active Blood Glucose Monitoring Suppl DeviceIndicatio ns:Type 2 diabetes mellitus with hyperglycemia, without long-term current use of insulin (HCC) Diagnosis: Diabetes type 2 Blood testing frequency: 1 to 2 times a day 1 Each 05/05/2024 Active Januvia 100 MG TabletIndicatio ns:Type 2 diabetes mellitus with hyperglycemia, without long-term current use of insulin (HCC) TAKE ONE TABLET BY MOUTH EVERY DAY 90 Tablet 1 06/10/2024 Active Active Problems Problem Noted Date Diagnosed Date Type 2 diabetes mellitus wit h hyperglycemia, with long-term current use of insulin 12/27/2023 Hyperlipidemia associated with type 2 diabetes m ellitus 12/27/2023 Encounters Date Type Department Care Team Description 06/10/2024 Refill [facility] - [place] [address] [place] [address] Jessica Lindsey, FITTER HELPER, J2EE ENGINEER Medication Refill from Last 3 Months Immunizations Immunization Administration Dates Next Due DTAP VACCINE 09/10/1997 DTP Vaccine 1993,1993 DTP-Hib 05/04/1994,1993 Hepatitis B Vaccine, Pediatric/adolescent 1993,1993,1993 Hib Vaccine,unspecified Formulation 1993,1 Human Papillomavirus (HPV) 9 -valent Vaccine 12/12/2018,10/15/2018 MMR Vaccine 09/10/1997,05/04/1994 Meningococcal Vaccine 02/15/2007 OPV 09/10/1997, 4,1993,04/28 TDAP Vaccine 01/22/2024,01/29/2018,02/15/2007 Family History Relation Name Status Comments Father Alive Mother Alive Social History Tobacco Use Types Packs/Day Years Used Date Smoking Tobacco: Former Smokeless Tobacco: Current Chew Alcohol Use Standard Drinks/Week Comments Not Currently 0 (1 standard drink = 0.6 oz pur e alcohol) PHQ-2 Answer Date Recorded Total Score - Questions 1-9 0 10/2023 Sexually Active Control Partners Comments Yes Male Comments No Sex and Gender Information Value Date Recorded Sex Assigned at Not on file Legal Sex Female 10:26 PM CDT Gender Identity Not on file Sexual Orientation Not on file Last Filed Vital Signs Vital Sign Reading Time Taken Comments Blood Pressure 106/82 04/04/2024 11:29 AM CDT Pulse 81 04/04/2024 11:29 AM CDT Temperature 36.7 C (98 F) 04/04/2024 11:29 AM CDT Respiratory Rate 18 04/04/2024 11:29 AM CDT Oxygen Saturation 97% 04/04/2024 11:29 AM CDT Inhaled Oxygen Concentration - - Weight 88 kg (194 lb) 04/04/2024 11:29 AM CDT Height 162.6 cm (5' 4 ) 04/04/2024 11:29 AM CDT Body Mass Index 33.3 04/04/2024 11:29 AM CDT Plan of Treatment Upcoming Encounters Date Type Department Care Team (Late st Contact Info) Description 10/03/2024 10:15 AM CDT Office Visit [facility] - Primary Care - [place] [address] [place] [address] Jessica Lindsey APRN, J2EE ENGINEER [address] [place] [address] Health Maintenance Due Date Last Done Comments Diabetes: Eye Exam 1993 SARS-COV-2 Immunization (#1) 1998 Pneumococcal Immunization Combined (1 of 2 - PCV) 02/02/2012 Pap Smear 2014 Diabetes: Hemoglobin A1c 09/25/2024 024, 12/25/2023, 02/19/2023, Additional history exists Influenza Immunization (#1) 2024 Postponed from 03/02/2024 (Patient Temporarily Declines) Diabetes: Nephropathy Screening 03/28/2025 03/28/2024, 12/25/2023, 02/19/2023, Additional history exists Diabetes: Foot Exam 04/04/2025 04/04/2024 Cervical Cancer Screening (CCS) 02/21/2029 HPV/Cotest 02/21/2029 02/22/2024 DTaP/Tdap/Td Immunization (9 - Td or Tdap) 01/21/2034 01/22/2024, 01/29/2018, 02/15/2007, Additional history exists Respiratory Syncytial Virus (RSV) Immunization (Adult) (1 - 1-dose 75+ series) 02/02/2068 Hepatitis B Immunization Completed 994, 1993, 1993 Meningococcal Immunization (ACWY) Aged Out 02/15/2007 No longer eligible based on patient's age to complete this topic Human Papillomavirus (HPV) Immunization Discontinued 12/12/2018, 10/15/2018 Hepatitis C Virus (HCV) Screening Completed 09/18/2023 Rotavirus Immunization Aged Out No lo nger eligible based on patient's age to complete this topic Procedures Procedure Name Priority Date/Time Associated Diagnosis Comments CMP (COMPREHENSIVE METABOLIC PANEL) Routine 03/28/2024 12:16 PM CDT Type 2 diabetes mellitus with hyperglycemia, without long-term current use of insulin (HCC) HEMOGLOBIN A1C W/ ESTIMATED GLUCOSE Routine 03/28/2024 12:16 PM CDT Type 2 diabetes mellitus with hyperglycemia, without long-term current use of insulin (HCC) from Last 3 Months or Most Recently Relevant to Health Maintenance Results * (ABNORMAL) HEMOGLOBIN A1C W/ ESTIMATED GLUCOSE (03/28/2024 12:16 PM CDT) HGB-A1C 6.7(H) 4.0 - 6.0 % 03/28/2024 3:31 PM CDT [facility] Est Average Glucose 145.6 mg/dL 03/28/2024 3:31 PM CDT [facility] Blood Venipuncture / Unknown 03/28/2024 12:16 PM CDT 03/28/2024 12:16 PM CDT Narrative [facility] - 03/28/2024 3:31 PM CDT HEMOGLOBIN A1C: DIABETIC PATIENTS: WELL-CONTROLLED: 6.2 - 7.0 INTERMEDIATE WELL-CONTROLLED: 7.0 - 9.0 POORLY-CONTROLLED: >9.0 us Jessica Lindsey APRN, J2EE ENGINEER CHEMISTRY ORDER MATTHIAS Final Result [facility] [address] [place] [address] * (ABNORMAL) CMP (COMPREHENSIVE METABOLIC PANEL) (03/28/2024 12:16 PM CDT) SODIUM 139 136 - 145 mmol/L 03/28/2024 3:39 PM CDT [facility] POTASSIUM 4.0 3.5 - 5.1 mmol/L 03/28/2024 3:39 PM CDT [facility] CHLORIDE 102 98 - 107 mmol/L 03/28/2024 3:39 PM CDT [facility] CO2, VENOUS 28 22 - 30 mmol/L 03/28/2024 3:39 PM CDT [facility] ANION GAP 13.0 <18.0 mmol/L 03/28/2024 3:39 PM CDT [facility] GLUCOSE 254(H) 70 - 99 mg/dL 03/28/2024 3:39 PM CDT [facility] BUN 15 5 - 18 mg/dL 03/28/2024 3:39 PM CDT [facility] CREATININE, BLOOD 0.98 0.60 - 1.00 mg/dL 03/28/2024 3:39 PM CDT [facility] BUN/CREATININE RATIO 15 12 - 20 ratio 03/28/2024 3:39 PM CDT [facility] TOTAL PROTEIN 7.5 6.3 - 8.2 g/dL 03/28/2024 3:39 PM CDT [facility] ALBUMIN 4.0 3.5 - 5.0 g/dL 03/28/2024 3:39 PM CDT [facility] A/G RATIO 1.1 1.0 - 2.2 03/28/2024 3:39 PM CDT [facility] CALCIUM 9.4 8.7 - 10.5 mg/dL 03/28/2024 3:39 PM CDT [facility] T BILI 0.6 0.2 - 1.2 mg/dL 03/28/2024 3:39 PM CDT [facility] SGOT (AST) 42(H) 5 - 34 U/L 03/28/2024 3:39 PM CDT [facility] SGPT (ALT) 73(H) 0 - 55 U/L 03/28/2024 3:39 PM CDT [facility] ALKALINE PHOSPHATASE 133 40 - 150 U/L 03/28/2024 3:39 PM CDT [facility] IS THE PATIENT REQUIRED TO BE FASTING? No 03/28/2024 3:39 PM CDT [facility] GFR, ESTIMATED >60 >=60 03/28/2024 3:39 PM CDT [facility] Comment: Creatinine Clearance is the preferred criteria for selecting drug dose adjustments in renally impaired patients. The GFR is provided as additional pertinent clinical information. GFR is reported in mL/min/1.73 sq m. Calculation based on the Chronic Kidney Disease Epidemiology Collaboration (CKD- EPI) equation refit without adjustment for race. GFR, EST. >60 >=60 024 3:39 PM CDT [facility] GFR, EST. NONAFRICAN >60 >=60 03/28/2024 3:39 PM CDT [facility] Blood Venipuncture / Unknown 03/28/2024 12:16 PM CDT 03/28/2024 12:16 PM CDT Jessica Lindsey APRN, CNP CHEMISTRY ORDER MATTHIAS Final Result [facility] [address] [place] [address] from Last 3 Months or Most Recently Relevant to Health Maintenance Insurance [place] Care Teams Meat Service Team Member Relationship Specialty Start Date End Date Jessica Lindsey APRN, J2EE ENGINEER [address] [place] [address] PCP - General Advanced Practice Nurse 05/10/21 Jessica Lindsey APRN, MARCOS [address] [place] [address] Nurse Practitioner Advanced Practice Nurse 04/12/21
--- OUTSIDE RECORDS SUMMARY | 2024-09-06 20:35 | XMS_ITS | Referral Summary ---
Author Organization [facility] Address [address] [place] [address] Care Team Providers Care Neonatal Critical Care Nurse Name Role Phone Yayo Aguilar Primary Care Provider [phone] Allergies Active Allergy Reactions Criticality Noted Date Comments Amoxicillin Other (See comments) Low 12/30/2019 Yeast infection Medications propranoloL (INDERAL) 10 mg tablet Take 10 mg by mouth 3 (three) times a day 1 Active nystatin 100,000 unit/mL suspension 1 Active Balcoltra 0.1 mg-0.02 mg (21)/36.5 mg(7) tablet 2 Active insulin NPH (HumuLIN N) 100 unit/mL vial for injection Inject 20u before breakfast, 14u before bed. 1 Active insulin lispro (HumaLOG, ADMELOG) 100 unit/mL vial for injection Inject 14u before breakfast, 14u before dinner. Take dosage 0-15 minutes prior to meal. 1 Active glucagon (glucagon) 1 mg kit Use as needed to treat severe hypoglycemia 1 Active ergocalciferol (VITAMIN D) 50,000 unit capsule 1 Active citalopram (CeleXA) 20 mg tablet 2 Active hydroquinone 4 % cream Apply to brown spots on face daily 30 g 3 4 Active Additional Information Patient not taking.Reported on 01/22/2024 folic acid (FOLVITE) 1 mg tablet 1 tablet daily (take on all days that you do not take methotrexate) 90 tablet 3 4 Active gentamicin (GARAMYCIN) 0.1 % creamIndication s:Infection of toe web Apply topically 3 (three) times a day to the crack between the toes until healed 30 g 3 4 Active Additional Information Patient not taking.Reported on 01/22/2024 methotrexate 2.5 mg tabletIndicatio ns:Other - non-oncology Take 6 tablets (15 mg total) by mouth every 7 days 24 tablet 3 4 Active Januvia 100 mg tablet Take 1 tablet (100 mg total) by mouth daily 4 Active hydrOXYzine (ATARAX) 25 mg tablet TAKE ONE TABLET BY MOUTH THREE TIMES A DAY 60 tablet 2 4 Active Active Problems Problem Noted Date Diagnosed Date Hyperlipidemia associated with type 2 diabetes indio caban 12/27/2023 Major depression, recurrent 08/10/2022 Overview (01/22/2024): Last Assessment & Plan: Condition: stable Depression screening done today - see results. Medications: Taking medications as prescribed If taking medications, do not stop treatment without consulting healthcare provider. If symptoms worsen or do not improve/stabilize, notify health care provider right away. If thoughts of harming self or others notify health care provider immediately &/or seek urgent/emergent care including calling Suicide Hotline (750 or ) or 842. Follow up in if symptoms worsen or fail to improve with PCP Psoriasis 08/10/2022 Overview (01/22/2024): Last Assessment & Plan: Condition: stable Follow up in: if symptoms worsen or fail to improve Maternal obesity affecting , antepartum 10/12/2021 Polyhydramnios, antepartum complication 10/13/19 GDM (gestational diabetes mellitus) 10/22/2020 Overview (10/12/2021): GCT: 206 GTT: 165 311 311 262 Supervision of high-risk of young mult igravida 10/22/2020 Overview (10/12/2021): Consult: Fam Garcia PNL: B+, Hep B Neg, RPR Neg Ab: Neg GCT:206 HIV: NR GBS: Dating: H/H/Plt: 13.1/38.3/213 Hgb Elec: UDS: QS: CF: Pap: NILM. Record scanned into media. 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 Gender Identity Not on file Sexual Orientation Not on file Last Filed Vital Signs Vital Sign Reading Time Taken Comments Blood Pressure 120/82 01/22/2024 3:41 PM CDT Pulse 115 01/22/2024 3:41 PM CDT Temperature 36.7 C (98.1 F) 01/22/2024 3:41 PM CDT Respiratory Rate 18 01/22/2024 3:41 PM CDT Oxygen Saturation 98% 01/22/2024 3:41 PM CDT Inhaled Oxygen Concentration - - Weight 89.8 kg (198 lb) 01/22/2024 3:41 PM CDT Height 160 cm (5' 3 ) 01/22/2024 3:41 PM CDT Body Mass Index 35.07 01/22/2024 3:41 PM CDT Plan of Treatment Not on file Procedures Procedure Name Priority Date/Time Associated Diagnosis Comments HEPATITIS C RNA, QUANTITATIVE, PCR Routine 09/18/2023 10:55 AM CDT High risk medication use COMPREHENSIVE METABOLIC PANEL Routine 09/18/2023 10:55 AM CDT High risk medication use from Last 3 Months or Most Recently Relevant to Health Maintenance Results * Hepatitis C (HCV) RNA PCR, quantitative Blood (09/18/2023 10:55 AM CDT) HCV RNA IU/mL <15 NOT DETECTED NOT DETECTED IU/mL [facility] HCV RNA log IU/mL <1.18 NOT DETECTED NOT DETECTED Log IU/mL [facility] Comment: This test was performed using Real-Time Polymerase Chain Reaction. Reportable Range: 15 IU/mL to 100,000,000 IU/mL (1.18 Log IU/mL to 8.00 Log IU/mL). The analytical performance characteristics of this assay have been determined by [employer]. The modifications have not been cleared or approved by the FDA. This assay has been validated pursuant to the CLIA regulations and is used for clinical purposes. For more information on this test, go to: http://education.Actiance/faq/YQW73b9 (This link is being provided for informational/ educational purposes only.) Blood 09/18/2023 10:5 5 AM CDT 09/18/2023 10:56 AM CDT Narrative [facility] - 09/20/2023 6:02 PM CDT FASTING:NO FASTING: NO us Zeb Taylor MD LAB MICROBIOLOGY - GENERA L ORDERABLES Final Result [facility] [address] [place] [address] * (ABNORMAL) Comprehensive metabolic panel (09/18/2023 10:55 AM CDT) [facility] Glucose 157(H) 65 - 139 mg/dL [facility] Comment: Non-fasting reference interval BUN 14 7 - 25 mg/dL [facility] Creatinine 0.82 0.50 - 0.97 mg/dL [facility] eGFR 99 > OR = 60 mL/min/1.7 3m2 [facility] BUN/creat ratio SEE NOTE: 6 - 22 (calc) [facility] Comment: Not Reported: BUN and Creatinine are within reference range. Sodium 138 135 - 146 mmol/L [facility] Potassium, pl 3.9 3.5 - 5.3 mmol/L [facility] Chloride 100 98 - 110 mmol/L [facility] CO2 28 20 - 32 mmol/L [facility] Calcium 9.2 8.6 - 10.2 mg/dL [facility] Protein, sr 6.6 6.1 - 8.1 g/dL [facility] Albumin 4.0 3.6 - 5.1 g/dL [facility] GLOBULIN 2.6 1.9 - 3.7 g/dL (calc) [facility] Alb/glob ratio 1.5 1.0 - 2.5 (calc) [facility] Bilirubin, total 0.7 0.2 - 1.2 mg/dL [facility] Alk phos 114 31 - 125 U/L [facility] AST 22 10 - 30 U/L [facility] ALT (SGPT) 35(H) 6 - 29 U/L [facility] Blood 09/18/2023 10:5 5 AM CDT 09/18/2023 10:56 AM CDT Narrative [facility] - 09/20/2023 6:02 PM CDT FASTING:NO FASTING: NO us Zeb Taylor MD LAB BLOOD ORDERABLES Lorraine l Result [facility] [address] [place] [address] from Last 3 Months or Most Recently Relevant to Health Maintenance Insurance [facility] Care Teams Neonatal Critical Care Nurse Relationship Specialty Start Date End Date Yayo Aguilar PA [address] [place] [address] PCP - General Orthopedic Surgery 03/30/23
--- OUTSIDE RECORDS SUMMARY | 2024-09-06 20:35 | XMS_ITS | Clinical Summary ---
Author Organization [facility] Address [address] [place] [address] Care Team Providers Care Door Frame Builder Name Role Phone Yayo Aguilar Primary Care Provider Allergies Active Allergy Reactions Criticality Noted Date [...] seek urgent/emergent care including calling Suicide Hotline (946 or ) or 003. 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 Gender Identity Not on file Sexual Orientation Not on file Obstetrics History Last Filed Vital Signs Vital Sign Reading [...] 01/22/2024 3:41 PM CDT Plan of Treatment Health Maintenance Due Date Last Done Comments Albumin Creatinine Ratio, Urine 1993 Cervical Cancer Screening 1993 Depression Screening 1993 Hemoglobin A1C 1993 Dilated Eye Exam 1993 Foot Exam 1993 Varicella Vaccines (1 of 2 - 13+ 2-dose series) 2006 Regular Well Visit/Exam 18-64 2011 Pneumococcal vaccine <65 (1 of 2 - PCV) 02/02/2012 Zoster Vaccine (1 of 2) 02/02/2012 HPV Vaccines (3 - 3-dose series) 04/16/2019 12/13/19 19, 10/15/2018 Influenza Vaccine (#1) 2024 1993, 1992 eGFR 09/17/2024 09/18/2023, 12/30/2019 Lipid Panel 12/24/2024 12/25/2023 DTaP/Tdap/Td Vaccine (9 - Td or Tdap) 01/21/2034 01/22/2024, 01/29/2018, 02/15/2007, Additional history exists Hepatitis B Screening Completed 1993 , 1993, 1993 Hepatitis C Screening Completed 09/18/2023, 024 Procedures Procedure Name Priority Date/Time Associated Diagnosis Comments HEPATITIS C RNA, QUANTITATIVE, PCR Routine 09/18/2023 10:55 AM CDT High risk medication use COMPREHENSIVE METABOLIC PANEL Routine 09/18/2023 10:55 AM CDT High risk medication use from Last 3 Months or Most Recently Relevant to Health Maintenance Results * Hepatitis C (HCV) RNA PCR, quantitative Blood (09/18/2023 10:55 AM CDT) [facility] HCV RNA IU/mL <15 NOT DETECTED NOT DETECTED IU/mL [facility] HCV RNA log IU/mL <1.18 NOT DETECTED NOT DETECTED Log IU/mL [facility] Comment: This test was performed using Real-Time Polymerase Chain Reaction. Reportable Range: 15 IU/mL to 100,000,000 IU/mL (1.18 Log IU/mL to 8.00 Log IU/mL). The analytical performance characteristics of this assay have been determined by [employer]. The modifications have not been cleared or approved by the FDA. This assay has been validated pursuant to the CLIA regulations and is used for clinical purposes. For more information on this test, go to: http://education.[employer] Software/faq/ZEY85m8 (This link is being provided for informational/ educational purposes only.) Blood 09/18/2023 10:5 5 AM CDT 09/18/2023 10:56 AM CDT Narrative [facility] - 09/20/2023 6:02 PM CDT FASTING:NO FASTING: NO us Zeb Taylor MD LAB MICROBIOLOGY - GENERA L ORDERABLES Final Result [facility] [address] [address] * (ABNORMAL) Comprehensive metabolic panel (09/18/2023 10:55 AM CDT) Glucose 157(H) 65 - 139 mg/dL [facility] [...] BLOOD ORDERABLES Lorraine l Result [facility] [address] [place] [address] from Last 3 Months or Most Recently Relevant to Health Maintenance Insurance [facility] Care Teams Door Frame Builder Relationship Specialty Start Date End Date Yayo Aguilar PA [address] [place] [phone] PCP - General Orthopedic Surgery 03/30/23
--- OUTSIDE RECORDS SUMMARY | 2024-09-06 20:35 | XMS_ITS | Encounter Summary ---
Author Organization [facility] Address [address] [place] [address] Phone Care Team Providers Care Professional Housing Consultant Name Role Phone Jessica Lindsey APRN, CNP Unavailable Jessica Lindsey APRN, CNP Primary Care P rovider Reason for Visit * Reason Comments Medication Refill Encounter Details Date Type Department Care Team (Late st Contact Info) Description 12/26/2022 Refill [facility] - Primary Care - [place] [address] [place] [address] Jessica Lindsey APRN, CNP [address] [place] [address] Medication Refill Social History Tobacco Use Types Packs/Day Years Used Date Smoking Tobacco: Former Smokeless Tobacco: Current Chew Alcohol Use Standard Drinks/Week Comments Yes 0 (1 standard drink = 0.6 oz pur e alcohol) PHQ-2 Answer Date Recorded Total Score - Questions 1-9 1 03/2021 Sexually Active Control Partners Comments Yes Male Comments No Sex and Gender Information Value Date Recorded Sex Assigned at Not on file Legal Sex Female 10:26 PM CDT Gender Identity Not on file Sexual Orientation Not on file documented as of this encounter Miscellaneous Notes * Telephone Encounter - Katey Moreira RN - 12/26/2022 4:02 PM CDT Alternate therapy documented in this encounter Plan of Treatment Upcoming Encounters Date Type Department Care Team (Late st Contact Info) Description 10/03/2024 10:15 AM CDT Office Visit [facility] - Primary Care - [place] [address] [place] [address] Jessica Lindsey APRN, CNP [address] [place] [address] documented as of this encounter Visit Diagnoses Diagnosis Psoriasis Other psoriasis documented in this encounter Additional Health Concerns Assessment Noted Time PHQ-9 Depression Total Score: 1 05/10/20 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
--- OUTSIDE RECORDS SUMMARY | 2024-09-06 20:35 | XMS_ITS | Clinical Summary ---
Author Organization [facility] [employer] Address [address] [address] Care Team Providers Care Manager Stylist Name Role Phone Unavailable Primary Care Provider Unavailabl e Source Comments [facility] [employer],non-owned Affiliates and Associated Physician Practices is amultiple site organization consisting of ambulatory clinics and hospital sitesin [place], [place], [place] and [place]. This disclosure is being madepursuant to the Care Everywhere program and may not contain all information available regarding this patient. Last updated 18.[facility] [employer] Allergies Active Allergy Reactions Criticality Noted Date Comments Amoxicillin Other Low 12/30/2019 Yeast infection Medications * Be aware that medications may not be up to date on this document. Alwaysverify current medications with the patient. Medication Sig Dispensed Refills Start Date End Date Status nystatin (MYCOSTATIN) 191818 UNIT/ML suspension 10/22/2020 Active vitamin D, ergocalciferol, (DRISDOL) 1.25 MG (32762 UT) capsule 10/21/2020 Active Vit-Fe Fumarate-FA ( [...] Mass Index - - Plan of Treatment Health Maintenance Due Date Last Done Comments PAP SMEAR 1993 HEPATITIS C SCREENING 01/28/2011 DTAP/TDAP/TD VACCINES (1 - Tdap) 02/02/2012 HEPATITIS B VACCINE (1 of 3 - 19+ 3-dose series) 02/02/2012 COVID-19 VACCINE (1 - 2023-2 5 season) 2024 INFLUENZA VACCINE (#1) 2024 DEPRESSION SCREENING 07/02/2024 ZOSTER VACCINE (1 of 2) 2043 HIV SCREENING Completed 09/24/2020 HIB VACCINE Aged Out No longer eligi ble based on patient's age to complete this topic HPV VACCINE Aged Out No longer eligi ble based on patient's age to complete this topic MENINGOCOCCAL (Group B) VACCINE Aged Out No longer eligible based on patient's age to complete this topic MENINGOCOCCAL VACCINE Aged Out No ariadne abel eligible based on patient's age to complete this topic PNEUMOCOCCAL VACCINE Aged Out No long er eligible based on patient's age to complete this topic Procedures Procedure Name Priority Date/Time Associated Diagnosis Comments HIV-1 HIV-2 ANTIBODY W/ REFLX CONFIRM Routine 09/24/2020 GLUCOSE CHALLENGE Routine 06/09/2020 from Last 3 Months or Most Recently Relevant to Health Maintenance Results * HIV-1 HIV-2 ANTIBODY W/ REFLX CONFIRM (09/24/2020) HIV-1/HIV-2 Non Reactive Blood BLOOD SPECIMEN / Unknown Historical Provider MD LAB - SEROLOGY OR DERABLES * GLUCOSE CHALLENGE (06/09/2020) GTT 1Hr 206 Blood BLOOD SPECIMEN / Unknown Historical Provider LAB - CHEMISTRY O RDERABLES from Last 3 Months or Most Recently Relevant to Health Maintenance
--- OUTSIDE RECORDS SUMMARY | 2024-09-06 20:35 | XMS_ITS | Encounter Summary ---
Author Organization [facility] Address [address] [place] [address] Phone Care Team Providers Care Landscaping Manager Name Role Phone Jessica Lindsey APRN, CNP Unavailable Jessica Lindsey APRN, CNP Primary Care P rovider Reason for Visit * Reason Comments Medication Refill Encounter Details Date Type Department Care Team (Late st Contact Info) Description 04/14/2022 Refill [facility] - Primary Care - [place] [address] [place] [address] Jessica Lindsey APRN, CNP [address] [place] [address] Medication Refill Social History Tobacco [...] on file Sexual Orientation Not on file COVID-19 Exposure Response Date Recorded In the last 10 days, have yo u been in contact with someone who was confirmed or suspected to have Coronavirus/COVID-19? No / Unsure 03/20/2022 4:09 PM CDT documented as of this encounter Miscellaneous Notes * Telephone Encounter - Gail Carias RN - 04/14/2022 1:42 PM CDT Refilled already today. documented in this encounter Plan of Treatment Upcoming Encounters Date Type Department Care Team (Late st Contact Info) Description 10/03/2024 10:15 AM CDT Office Visit [facility] - Primary Care - [place] [address] [place] [address] Jessica Lindsey APRN, CNP [address] [place] [address] documented as of this encounter Visit Diagnoses Diagnosis Psoriasis Other psoriasis documented in this encounter Additional Health Concerns Assessment Noted Time PHQ-9 Depression Total Score: 1 05/10/20 21 10:[address] LIGHT documented as of this encounter Care Teams Landscaping Manager Relationship Specialty Start Date End Date Jessica Lindsey APRN, MARCOS [address] [place] [address] PCP - General Advanced Practice Nurse 05/10/21 Jessica Lindsey APRN, MARCOS [address] [place] [address] Nurse Practitioner Advanced Practice Nurse 04/12/21 documented as of this encounter
--- NOTE | 2024-09-06 20:43 | ED.EYEPROB ---
HPI - Eye Problem General Chief complaint: Eye Problems Stated complaint: Infection in both eyes Time Seen by Provider: 09/06/24 20:43 Source: patient and family Mode of arrival: ambulatory Limitations: no limitations History of Present Illness HPI Narrative: Patient presents with bilateral eye irritation and redness with some yellow discharge started in her left eye and with her right eye no fever chills no shortness of breath. chief complaint: eye pain and eye redness Onset (ago): day(s) Onset description: gradual Duration: constant Location: both eyes Eye Symptoms: burning and redness Severity: mild Related Data Allergies Allergy/AdvReac Type Severity Reaction Status Date / Time amoxicillin AdvReac Rash Verified 01/22/24 18:09 Review of Systems Review of Systems: All systems reviewed & are unremarkable except as noted in HPI and below PMFSH Past Medical History Medical History IUP (intrauterine ), incidental Family History Family History Grandparent Carcinoma of colon Diabetes mellitus Mother Family history of malignant neoplasm of cervix Sibling Down syndrome Social History Social History Smoking status: Never smoker Alcohol intake: current Substance use: never Gender identity (if verbalized by the patient): Female Spiritual care concerns: No Exam Const: General: healthy appearing and no acute distress Nutritional Appearance: well nourished Orientation/consciousness: patient oriented x3 HENMT: Other: Bilateral injected red eyes Eyes: Conjunctivae: conjunctival abnormality Neck: Neck: normal visual inspection and no lymphadenopathy Chest: Chest palpation & inspection: normal inspection of the chest Resp: Effort & Inspection: normal respiratory effort Auscultation: clear to auscultation bilaterally Cardio: Rate: regular rate Rhythm: regular rhythm Course Course Emergency Course: antibiotic eye drops instilled in each eye and will send prescription to patient's local pharmacy. Vital Signs Vital signs: Vital Signs Temperature 36.6 C 09/06/24 20:34 Pulse Rate 99 09/06/24 20:34 Respiratory Rate 14 09/06/24 20:34 Blood Pressure 127/81 09/06/24 20:34 Pulse Oximetry 99 09/06/24 20:34 Oxygen Delivery Room Air 09/06/24 20:34 Temperature 36.6 C 09/06/24 20:34 Pulse Rate 99 09/06/24 20:34 Respiratory Rate 14 09/06/24 20:34 Blood Pressure 127/81 09/06/24 20:34 Pulse Oximetry 99 09/06/24 20:34 Oxygen Delivery Room Air 09/06/24 20:34 Critical Care Time Critical Care Time Critical Care Time: No Discharge Plan Discharge Clinical Impression: Bacterial conjunctivitis Patient Disposition: Home, Self-Care Condition: Stable Instructions: Antibiotic Form, Conjunctivitis (ED) Additional Instructions: advised to take medication as prescribed and follow-up with primary care physician if symptoms persist or worsen. Patient Language: Taiwanese Prescriptions: New neomycin-polymyxin B-dexameth [Maxitrol] 3.5mg/mL-10,000 unit/mL-0.1 % drops,suspension 1 drp EACH EYE Q4H 7 Days Qty: 5 0RF No Action cephalexin 500 mg capsule 500 mg PO Q6H 10 Days Qty: 40 0RF doxycycline hyclate 100 mg tablet 100 mg PO BID 10 Days Qty: 20 0RF ibuprofen 400 mg tablet 400 mg PO TID PRN (Reason: fever or pain) Qty: 30 0RF acetaminophen [Tylenol Extra Strength] 500 mg tablet 500 mg PO Q6H PRN (Reason: fever or pain) Qty: 30 0RF Follow-up/Referrals: UNKNOWN,DOCTOR [Primary Care Provider] - Time of Disposition: 20:47
[2024-09-06] MEDS: NEOMYCIN/POLYMYXIN/HYDROCORT 7.5 ML EYE DROPS (*BKC) 1 DROP EACH EYE (20:52)
[2024-09-06 21:08] VITALS: BP 133/79; PULSE 82; RESP 18; O2SAT 97
== END 2024-09-06 21:08 | disposition home or self-care (01) ==
PROVIDERS: Emergency Provider Emergency Medicine
DX: H10.89 Other conjunctivitis (principal)
CPT/HCPCS: 99283; A9270

== ENCOUNTER 2025-02-16 16:39 | Emergency (ER) | payer OTHER, SELFPAY ==
--- OUTSIDE RECORDS SUMMARY | 2025-02-16 16:42 | XMS_ITS | Clinical Summary ---
Author Organization [facility] Address [address] [place] [address] Phone Care Team Providers Care Silver Miner Name Role Phone Jessica Lindsey APRN, RADIO OPERATOR GROUND Unavailable Provider, None Primary Care Provider Unavailabl e Allergies Active Allergy Reactions Criticality Noted Date Comments Amoxicillin Other (see Comments) 12/27/2021 Gets a yeast infection Medications Levonorgest-Eth Estrad-Fe Bisg (Balcoltra) 0.1-20 MG-MCG(21) Tablet 2 Active methotrexate 2.5 MG Tablet Take 15 mg by mouth 4 Active folic acid (FOLVITE) 1 MG Tablet 1 tablet daily (take on all days that you do not take methotrexate) 4 Active Glucose Blood StripIndication s:Type 2 diabetes mellitus with hyperglycemia, without long-term current use of insulin (HCC) Use as directed 100 Each 3 4 Active Lancets MiscIndications :Type 2 diabetes mellitus with hyperglycemia, without long-term current use of insulin (HCC) Use as directed 200 Lancet . 1 4 Active gentamicin (GARAMYCIN) 0.1 % Cream as needed. 4 Active Blood Glucose Monitoring Suppl DeviceIndicatio ns:Type 2 diabetes mellitus with hyperglycemia, without long-term current use of insulin (HCC) Diagnosis: Diabetes type 2 Blood testing frequency: 1 to 2 times a day 1 Each 4 Active Januvia 100 MG TabletIndicatio ns:Type 2 diabetes mellitus with hyperglycemia, without long-term current use of insulin (HCC) TAKE ONE TABLET BY MOUTH EVERY DAY 90 Tablet 1 4 Active ciclopirox (PENLAC) 8 % SolutionIndicat ions:Tinea unguium Apply nightly to toenails for 12 weeks. 6.6 mL 5 Active hydrOXYzine (ATARAX) 10 MG TabletIndicatio ns:Pruritic dermatitis Take 2.5 Tablets by mouth every 6 hours as needed for Itching. 120 Tablet 5 Active metFORMIN (GLUCOPHAGE) 500 MG TabletIndicatio ns:Type 2 diabetes mellitus with hyperglycemia, without long-term current use of insulin (HCC) Take 1 Tablet by mouth 2 times daily (with meals). 14 Tablet 5 Active cephALEXin (KEFLEX) 500 MG Capsule Take 1 Capsule by mouth 4 times daily for 5 days. 20 Capsule 5 01/27/20 25 fluconazole (Diflucan) 150 MG Tablet Take 1 Tablet by mouth once for 1 dose. 1 Tablet 5 01/22/20 25 Active Problems Problem Noted Date Diagnosed Date Type 2 diabetes mellitus wit h hyperglycemia, with long-term current use of insulin 12/27/2023 Hyperlipidemia associated with type 2 diabetes m mee 12/27/2023 Encounters Date Type Department Care Team Description 01/21/2025 5:31 PM CDT - 01/21/2025 7:58 PM CDT Emergency [facility] [address] [place] [address] Heidy Bull, MOUNTER, RADIO OPERATOR GROUND Laceration of left thumb without foreign body without damage to nail, initial encounter Discharge Disposition: Discharged to home or Selfcare 01/21/2025 Travel from Last 3 Months Immunizations Immunization Administration [...] Used Date Smoking Tobacco: Former Smokeless Tobacco: Former Chew Quit: 09/19/2024 Tobacco Cessation:Counseling Given: No Alcohol Use Standard Drinks/Week Comments Not Currently [...] Sign Reading Time Taken Comments Blood Pressure 133/78 01/21/2025 7:57 PM CDT Pulse 98 01/21/2025 7:57 PM CDT Temperature 37.3 C (99.2 F) 01/21/2025 4:14 PM CDT Respiratory Rate 16 01/21/2025 7:57 PM CDT Oxygen Saturation 99% 01/21/2025 7:57 PM CDT Inhaled Oxygen Concentration - - Weight 88.5 kg (195 lb) 01/21/2025 4:14 PM CDT Height 162.6 cm (5' 4) 01/21/2025 4:14 PM CDT Body Mass Index 33.47 01/21/2025 4:14 PM CDT Plan of Treatment Health Maintenance Due Date Last Done Comments SARS-COV-2 Immunization (#1) 1998 Pneumococcal Immunization Combined (1 of 2 - PCV) 02/02/2012 Pap Smear 2014 Human Papillomavirus (HPV) Immunization (3 - 3-dose series) 04/16/2019 12/12/2018, 10/15/2018 Influenza Immunization (#1) 2025 Diabetes: Hemoglobin A1c 04/03/20252 025, 03/28/2024, 12/25/2023, Additional history exists Diabetes: Foot Exam 04/04/2025 04/04/2024 Diabetes: Eye Exam 09/24/2025 09/24/2024, 09/24/2024 Diabetes: Nephropathy Screening 10/03/2025 10/03/2024, 10/02/2024, 03/28/2024, Additional history exists Cervical Cancer Screening (CCS) 02/21/2029 HPV/Cotest 02/21/2029 02/22/2024 DTaP/Tdap/Td Immunization (9 - Td or Tdap) 01/21/2034 01/22/2024, 01/29/2018, 02/15/2007, Additional history exists Respiratory Syncytial Virus (RSV) Immunization (Adult) (1 - 1-dose 75+ series) 02/02/2068 Hepatitis B Immunization Completed 994, 1993, 1993 Meningococcal Immunization (ACWY) Aged Out 02/15/2007 No longer eligible based on patient's age to complete this topic Hepatitis C Virus (HCV) Screening Completed 09/18/2023 Rotavirus Immunization Aged Out No lo nger eligible based on patient's age to complete this topic Procedures Procedure Name Priority Date/Time Associated Diagnosis Comments LACERATION REPAIR Routine 01/21/2025 6:3 0 PM CDT XR HAND 2 VIEWS LEFT STAT 01/21/2025 4:33 PM CDT UR MICROALBUMIN/CREATIN INE RATIO RANDOM Routine 10/03/2024 11:11 AM CDT Type 2 diabetes mellitus with hyperglycemia, without long-term current use of insulin (HCC) HEMOGLOBIN A1C W/ ESTIMATED GLUCOSE Routine 10/02/2024 11:03 AM CDT Type 2 diabetes mellitus with hyperglycemia, without long-term current use of insulin (HCC) Hyperlipidemia associated with type 2 diabetes mellitus (HCC) HM DILATED EYE EXAM 09/24/2024 1 2:00 AM CDT from Last 3 Months or Most Recently Relevant to Health Maintenance Results * Laceration Repair (01/21/2025 6:30 PM CDT) Narrative Nate Vivas MD - 01/21/2025 6:30 PM CDT Nate Vivas MD 01/22/2025 5:51 AM Laceration Repair Performed by: Heidy Bull APRN, CNP Authorized by: Heidy Bull APRN, CNP Consent: Consent obtained: Verbal Risks discussed: Infection, pain, need for additional repair, poor cosmetic result, poor wound healing and nerve damage Alternatives discussed: No treatment, delayed treatment and observation Pitkin protocol: Patient identity confirmed: Verbally with patient Anesthesia: Anesthesia method: Local infiltration Local anesthetic: Lidocaine 1% w/o epi Laceration details: Location: Finger Finger location: L thumb Length (cm): 1.5 Exploration: Imaging outcome: foreign body not noted Wound exploration: wound explored through full range of motion and entire depth of wound visualized Treatment: Area cleansed with: Povidone-iodine and saline Amount of cleaning: Standard Skin repair: Repair method: Sutures Suture size: 5-0 Suture material: Nylon Number of sutures: 4 Repair type: Repair type: Simple Post-procedure details: Dressing: Non-adherent dressing and antibiotic ointment Heidy Bull APRN, CNP PROCEDURE/MINOR MOE RGICAL ORDERABLES Final Result * XR HAND 2 VIEWS LEFT (01/21/2025 4:33 PM CDT) Anatomical Region Laterality Modality UPPER EXTREMITY, hand Left Digital Ra diography 01/21/2025 5:05 PM CDT Impressions 01/21/2025 5:08 PM CDT IMPRESSION: No grossly displaced fracture in the left hand within the confines of the limited two view study. Narrative 01/21/2025 5:08 PM CDT EXAM DESCRIPTION: XR HAND 2 VIEWS LEFT REASON FOR STUDY: laceration to left hand from a horse's hoof knife approximately 15 minutes prior to arrival. TECHNIQUE: Frontal and lateral radiographic view(s) of the left hand . COMPARISON: None available. FINDINGS: Please note this evaluation is limited due to imaging technique as an oblique view was not obtained. As imaged there is no definite acute fracture in the left hand. No gross radiopaque foreign body. THIS IS AN ELECTRONICALLY VERIFIED FINAL REPORT 01/21/2025 5:05 PM - Electronically signed by Dixon Bond D.O. AP: AP Report ID: [id number] Reading Location: [id number] Procedure Note Dixon Bond DO - 01/21/2025 EXAM DESCRIPTION: XR HAND 2 VIEWS LEFT REASON FOR STUDY: laceration to left hand from a horse's hoof knife approximately 15 minutes prior to arrival. TECHNIQUE: Frontal and lateral radiographic view(s) of the left hand . COMPARISON: None available. FINDINGS: Please note this evaluation is limited due to imaging technique as an oblique view was not obtained. As imaged there is no definite acute fracture in the left hand. No gross radiopaque foreign body. THIS IS AN ELECTRONICALLY VERIFIED FINAL REPORT 01/21/2025 5:05 PM - Electronically signed by Dixon Bond D.O. AP: AP Report ID: [id number] Reading Location: [id number] IMPRESSION: No grossly displaced fracture in the left hand within the confines of the limited two view study. Brandy Henry MD IMG DIAGNOSTIC ORDERABLE S Final Result * UR MICROALBUMIN/CREATININE RATIO RANDOM (10/03/2024 11:11 AM CDT) RAN UR MICROALBUMIN 0.78 mg/dL 10/03/2024 1:30 PM CDT [facility] Comment:No reference range h as been established. Consider Clinical Correlation. CREATININE URINE 111.9 mg/dL 10/04/19 1:30 PM CDT [facility] Comment:No reference range h as been established. Consider Clinical Correlation. ALB/CREAT RATIO 7 0 - 30 mg/g CRE 10/03/2024 1:30 PM CDT [facility] Urine Non-Phlebotomy Collection / Unknown 10/03/2024 11:11 AM CDT 10/03/2024 11:11 AM CDT Jessica Lindsey APRN, CNP URINE ORDERABLE S Final Result Performing Organization Address [facility] Co de Phone Number [facility] [address] [place] [address] * (ABNORMAL) HEMOGLOBIN A1C W/ ESTIMATED GLUCOSE (10/02/2024 11:03 AM CDT) HGB-A1C 6.5(H) 4.0 - 6.0 % 10/02/2024 1:42 PM CDT [facility] Est Average Glucose 139.9 mg/dL 10/02/2024 1:42 PM CDT [facility] Blood Venipuncture / Unknown 10/02/2024 11:03 AM CDT 10/02/2024 11:03 AM CDT Narrative [facility] - 10/02/2024 1:42 PM CDT HEMOGLOBIN A1C: DIABETIC PATIENTS: WELL-CONTROLLED: 6.2 - 7.0 INTERMEDIATE WELL-CONTROLLED: 7.0 - 9.0 POORLY-CONTROLLED: >9.0 Specimens containing greater than 5% of Hemoglobin F may result in lower than expected % HbA1C results. Jessica Lindsey APRN, CNP CHEMISTRY ORDER MATTHIAS Final Result Performing Organization Address [facility] Co de Phone Number [facility] [place] [address] * HM DILATED EYE EXAM (09/24/2024 12:00 AM CDT) 09/24/2024 us Provider Scan PROCEDURE/MINOR SURGICAL ORDERAB LES Final Result Performing Organization Address City/[facility]/ZIP Co de Phone Number SCAN from Last 3 Months or Most Recently Relevant to Health Maintenance Insurance [employer] Care Teams Silver Miner Relationship Specialty Start Date End Date Provider, None [place] PCP - General 01/21/25 Jessica Lindsey, MOUNTER, RADIO OPERATOR GROUND [address] [place] [address] Nurse Practitioner Advanced Practice Nurse 04/12/21
--- OUTSIDE RECORDS SUMMARY | 2025-02-16 16:42 | XMS_ITS | Clinical Summary ---
Author Organization [facility] Address [address] [place] [address] Care Team Providers Care Assembler Ping Pong Table Name Role Phone Yayo Aguilar Primary Care [...] seek urgent/emergent care including calling Suicide Hotline (932 or ) or 981. Follow up in if symptoms worsen or [...] on file Legal Sex Female 10:14 AM SR. PAYROLL MANAGER Gender Identity Not on file Sexual [...] 3:41 PM CDT Height 160 cm (5' 3) 01/22/2024 3:41 PM CDT Body Mass Index [...] - 3-dose series) 04/16/2019 12/13/19 19, 10/15/2018 eGFR 09/17/2024 09/18/2023, 12/30/2019 Lipid Panel 12/24/2024 12/25/2023 Influenza Vaccine (#1) 2025 1993, 1992 DTaP/Tdap/Td Vaccine (9 - Td or Tdap) [...] PCR, quantitative Blood (09/18/2023 10:55 AM CDT) [facility] HCV RNA IU/mL <15 NOT DETECTED NOT DETECTED IU/mL [facility] HCV RNA log IU/mL <1.18 NOT DETECTED NOT DETECTED Log IU/mL [facility] Comment: This test was performed using Real-Time Polymerase Chain Reaction. Reportable Range: 15 IU/mL to 100,000,000 IU/mL (1.18 Log IU/mL to 8.00 Log IU/mL). The analytical performance characteristics of this assay have been determined by [employer]. The modifications have not been cleared or approved by the FDA. This assay has been validated pursuant to the CLIA regulations and is used for clinical purposes. For more information on this test, go to: http://education.[employer]/faq/FWL27w7 (This link is being provided for informational/ educational purposes only.) Blood 09/18/2023 10:5 5 AM CDT 09/18/2023 10:56 AM CDT Narrative [facility] - 09/20/2023 6:02 PM CDT FASTING:NO FASTING: NO us Zeb Taylor MD LAB MICROBIOLOGY - GENERA L ORDERABLES Final Result [facility] [address] [address] * (ABNORMAL) Comprehensive metabolic panel (09/18/2023 10:55 [...] ORDERABLES Lorraine l Result [facility] [address] [place] [address] from Last 3 Months or Most Recently Relevant to Health Maintenance Insurance [facility] Care Teams Assembler Ping Pong Table Relationship Specialty Start Date End Date Yayo Aguilar PA [address] [place] [phone] PCP - General Orthopedic Surgery 03/30/23
--- OUTSIDE RECORDS SUMMARY | 2025-02-16 16:43 | XMS_ITS | Encounter Summary ---
Author Organization [facility] Address [address] [place] [address] Phone Care Team Providers Care Building Mover Name Role Phone Jessica Lindsey APRN, MARCOS Unavailable Jessica Lindsey APRN, MARCOS Primary Care P rovider Provider, None Primary Care Provider Unavailabl e Reason for Visit * Reason Comments Medication Refill Encounter Details Date Type Department Care Team (Late st Contact Info) Description 04/14/2022 Refill [facility] - [place] [address] [place] [address] Jessica Lindsey APRN, TRIM INSTALLER [address] [place] [address] Medication Refill Social History Tobacco [...] documented in this encounter Plan of Treatment Not on file documented as of this encounter Visit Diagnoses Diagnosis Psoriasis Other psoriasis documented in this encounter Additional Health Concerns Assessment Noted Time PHQ-9 Depression Total Score: 1 05/10/20 21 10:00 AM INSPECTOR MATERIAL DISPOSITION documented as of this encounter Care Teams Building Mover Relationship Specialty Start Date End Date Jessica Lindsey APRN, TRIM INSTALLER [address] [place] [address] PCP - General Advanced Practice Nurse 05/10/21 Provider, None [place] PCP - General 01/21/25 Jessica Lindsey APRN, TRIM INSTALLER [address] [place] [address] Nurse Practitioner Advanced Practice Nurse 04/12/21 documented as of this encounter
--- OUTSIDE RECORDS SUMMARY | 2025-02-16 16:43 | XMS_ITS | Clinical Summary ---
Author Organization [facility] Address [address] [place] [address] Care Team Providers Care Steam Heating Installer Name Role Phone Unavailable Primary Care Provider Unavailabl e Source Comments [facility],non-owned Affiliates and Associated Physician Practices is amultiple site organization consisting of ambulatory clinics and hospital sitesin [place], [place], [place] and [place]. This disclosure is being madepursuant to the Care Everywhere program and may not contain all information available regarding this patient. Last updated 18.[facility] Allergies Active Allergy Reactions Criticality Noted Date Comments Amoxicillin Other Low 12/30/2019 Yeast infection Medications * Be aware that medications may not be up to date on this document. Alwaysverify current medications with the patient. nystatin (MYCOSTATIN) 484207 UNIT/ML suspension 1 Active vitamin D, ergocalciferol, (DRISDOL) 1.25 MG (19536 UT) capsule 1 Active Vit-Fe Fumarate-FA ( VITAMIN) 28-0.8 MG tablet Take 1 tablet by mouth once daily Active HUMALOG vial Inject 14u before breakfast, 14u before dinner. Take dosage 0-15 minutes prior to meal. 1 vial 5 1 Active HUMULIN N vial Inject 20u before breakfast, 14u before bed. 2 vial 5 1 Active TRUEPLUS INSULIN SYRINGE 31G X 5/16 1 ML syringe To inject insulin 3x daily- before breakfast, before dinner, and at bedtime. 100 Each 5 1 Active blood glucose (ONETOUCH VERIO) test strip To test blood sugar before meals, 1 hour after meals, and at bedtime, 7x daily 200 strip 5 1 Active Glucagon, rDNA, (GLUCAGON EMERGENCY) 1 MG KIT Use as needed to treat severe hypoglycemia 1 kit 1 1 Active Active Problems Problem Noted Date Diagnosed [...] Years Used Date Smoking Tobacco: Never Assessed Comments No Sex and Gender Information Value Date Recorded Sex Assigned at Not on file Legal Sex Female 9:42 AM CDT Gender Identity Not on file Sexual [...] Health Maintenance Due Date Last Done Comments HEPATITIS C SCREENING 01/28/2011 DTAP/TDAP/TD VACCINES (1 - Tdap) 02/02/2012 HEPATITIS B VACCINE (1 of 3 - 19+ 3-dose series) 02/02/2012 HPV VACCINE (1 - 3-dose SCDM series) 02/02/2020 COVID-19 VACCINE ( - 2024-2 5 season) 2024 DEPRESSION SCREENING 07/02/2024 INFLUENZA VACCINE (#1) 2025 ZOSTER VACCINE (1 of 2) 2043 HIV SCREENING Completed 09/24/2020 HIB VACCINE Aged Out No longer eligi ble based on patient's age to complete this topic MENINGOCOCCAL (Group B) VACC INE SHARED DECISION-MAKING Aged Out No longer eligibl e based on patient's age to complete this topic MENINGOCOCCAL GROUPS A/C/Y/W VACCINE Aged Out No longer eligible b ased on patient's age to complete this topic [...] / Unknown Historical Provider LAB - SEROLOGY ORDERABLES Final Result * GLUCOSE CHALLENGE (06/09/2020) GTT 1Hr 206 Blood BLOOD SPECIMEN / Unknown Historical Provider LAB - CHEMISTRY ORDERABLE S Final Result from Last 3 Months or Most Recently Relevant to Health Maintenance Insurance [facility]
--- OUTSIDE RECORDS SUMMARY | 2025-02-16 16:43 | XMS_ITS | Encounter Summary ---
Author Organization [facility] Address [address] [place] [address] Phone Care Team Providers Care Trouble Locator Test Desk Name Role Phone Jessica Lindsey APRN, FINANCE LECTURER Unavailable Jessica Lindsey APRN, MARCOS Primary Care P rovider Provider, None Primary Care Provider Unavailabl e Reason for Visit * Reason Comments Medication Refill Encounter Details Date Type Department Care Team (Late st Contact Info) Description 12/26/2022 Refill [facility] - [facility] - [place] [address] [place] [address] Jessica Lindsey APRN, FINANCE LECTURER [address] [place] [address] Medication Refill Social History Tobacco [...] Total Score: 1 05/10/20 21 10:00 AM RESOURCE TECHNICIAN documented as of this encounter Care Teams Trouble Locator Test Desk Relationship Specialty Start Date End Date Jessica Lindsey APRN, FINANCE LECTURER [address] [place] [address] PCP - General Advanced Practice Nurse 05/10/21 Provider, None [place] PCP - General 01/21/25 Jessica Lindsey APRN, FINANCE LECTURER [address] [place] [address] Nurse Practitioner Advanced Practice Nurse 04/12/21 documented as of this encounter
--- OUTSIDE RECORDS SUMMARY | 2025-02-16 16:43 | XMS_ITS | Patient Health Record ---
Author Organization [facility] Address [address] [place], [place] [address] Care Team Providers Care Transport Aircrewman Name Role Phone SALTY HALL Unavailable [phone] Gigi Mclean Unavailable Unavailable Reason For Referral No Information Plan Of Treatment No Information
[2025-02-16 16:50] VITALS: BP 135/80; PULSE 87; RESP 20; TEMP 36.9; O2SAT 100
[2025-02-16 17:09] LABS: BEDSIDEPREGUCG Negative (Negative); EDUAAPPEAR Cloudy; EDUABILI Negative (Negative); EDUABLOOD Negative (Negative); EDUACOLOR1 Yellow; EDUAGLUCOSE Negative (Negative); EDUAKETONE Negative (Negative); EDUALEUKO Negative (Negative); EDUANITRATE Negative (Negative); EDUAPH 7.0; EDUAPROTEIN Negative (Negative); EDUASPGRAVITY 1.025; EDUAUROBILI 0.2
--- NOTE | 2025-02-16 17:44 | ECG_ITS ---
Test Date: 2025-02-16 17:58:59 Measurements Intervals [place] Rate: 73 P: 4 OK: 137 QRS: 19 QRSD: 86 T: 13 QT: 378 QTc: 419 Interpretive Statements SINUS RHYTHM POSSIBLE RIGHT VENTRICULAR CONDUCTION DELAY BORDERLINE ECG No previous ECG available for comparison Electronically Signed On 02-17-2025 07:44:35 CDT by Basil Bejarano D.O.
--- NOTE | 2025-02-16 18:17 | ED.FEMALEGU ---
HPI - Female Genitourinary General Chief complaint: Urogenital-Female Stated complaint: urinary problems, stomach issues, back issues Time Seen by Provider: 02/16/25 17:30 Source: patient and RN notes reviewed Mode of arrival: ambulatory Limitations: no limitations History of Present Illness HPI Narrative: 30-year-old female presents Express Care complaining of burning sensation to her upper abdomen that is been intermittent over the last week. Patient also reports intermittent nausea but denies any vomiting or diarrhea. Patient denies any abdominal pain. Patient denies any chest pain or shortness of breath. 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 Patient says the pain is worse with certain movements of her back. Patient also reports increased urinary frequency but denies any urinary symptoms. Patient denies any fevers, body aches, chills, or any other symptoms. Patient not tried any [id number] help with symptoms. Related Data Home Medications ?Medication ?Instructions ?Recorded ?Confirmed ?Last Taken ?Type levonorgestrel 0.1 mg-ethinyl tablet 02/16/25 Unknown History estradiol 0.02 mg (21)/iron (7) tablet sitagliptin phosphate 100 mg mg 02/16/25 Unknown History tablet (Januvia) Allergies Allergy/AdvReac Type Severity Reaction Status Date / Time No Known Allergies Allergy Verified 02/16/25 16:55 Review of Systems Review of Systems: CONSTITUTIONAL: Denies fever, chills, or sweats. EYES: Denies visual changes, redness, or discharge. ENT: Denies rhinorrhea, congestion, sore throat, or otalgia. CARDIOVASCULAR: Denies chest pain, palpitations, or edema. RESPIRATORY: Denies cough or dyspnea. GASTROINTESTINAL: Denies abdominal pain, nausea, vomiting, or diarrhea. Positive for abdominal discomfort and nausea. GENITOURINARY: Denies dysuria or hematuria. Positive for frequency. SKIN: Denies rash or itching. MUSCULOSKELETAL: Denies joint pain, or myalgia. Positive for back pain. NEUROLOGIC: Denies headache, numbness, or weakness. PSYCHIATRIC: Denies anxiety or depression. All other systems reviewed are negative, except as documented in HPI. [facility] Past Medical History Medical History IUP (intrauterine ), incidental Family History Family History Grandparent Carcinoma of colon Diabetes mellitus Mother Family history of malignant neoplasm of cervix Sibling Down syndrome Social History Social History Smoking status: Never smoker Alcohol intake: current Substance use: never Gender identity (if verbalized by the patient): Female Spiritual care concerns: No Comments At the time of my signature, I reviewed and agree with the nursing past medical, surgical, social, and family history. There is no relevant family history pertinent to the patient complaint. Exam Narrative: GENERAL: This is a well-nourished, well-developed adult, in no apparent distress. They are non ill-appearing, nontoxic appearing. HEAD: normocephalic, atraumatic. EYES: Sclera clear/white. Conjunctiva normal. Vision is grossly intact. Extraocular movements intact EARS: External ears normal, Hearing grossly intact. NOSE: External nose normal THROAT: Mucous membranes moist, NECK: Neck supple, non-tender without lymphadenopathy, masses or thyromegaly. CARDIOVASCULAR: Regular rate and rhythm without murmurs, gallops, or rubs. RESPIRATORY: Clear to auscultation. Breath sounds equal bilaterally. No wheezes, rales, or rhonchi. GASTROINTESTINAL: Abdomen soft, non-tender, nondistended. Bowel sounds are active. No hepato-splenomegaly, or palpable masses. No guarding or rigidity. No rebound tenderness. SKIN: warm, Dry, intact with no suspicious lesions or rash, good texture and turgor. NEURO: awake, alert, and oriented to person, place and time. There were no obvious focal neurologic abnormalities. EXTREMITIES: No joint tenderness, effusion, or edema noted. BACK: Nontender without deformity. No CVA tenderness. No cervical, thoracic, or lumbar point tenderness, crepitus, or step-offs. Course Course Emergency Course: Portions of this record may have been created with voice recognition software Level of Care: Express Care Visit Vital Signs Vital signs: Vital Signs Temperature 98.4 F 02/16/25 16:50 Pulse Rate 87 02/16/25 16:50 Respiratory Rate 20 02/16/25 16:50 Blood Pressure 135/80 02/16/25 16:50 Pulse Oximetry 100 02/16/25 16:50 Oxygen Delivery Room Air 02/16/25 16:50 Temperature 98.4 F 02/16/25 16:50 Pulse Rate 87 02/16/25 16:50 Respiratory Rate 20 02/16/25 16:50 Blood Pressure 135/80 02/16/25 16:50 Pulse Oximetry 100 02/16/25 16:50 Oxygen Delivery Room Air 02/16/25 16:50 Reviewed MDM - Female Genitourinary MDM Narrative Medical decision making narrative: EKG sinus rhythm without ischemic findings. Low suspicion for ACS. Urine dipstick negative for any evidence of infection. Urine Cultures pending. No peritoneal findings. Patient nontender on abdomen exam. Physical exam reassuring. Patient's symptoms likely related to gastritis. Will prescribe patient omeprazole. Offered patient ER transfer for further evaluation management of her symptoms and she declined. Back pain likely musculoskeletal in nature. Discussed physical exam findings. Advised supportive measures and signs/symptoms to go to the ER. Pt is appropriate for outpt treatment and f/u. Differential Diagnosis Differential diagnosis: Likely urinary tract infection and other (Gastritis,, acid reflux, stomach ulcer, back pain, pyelonephritis) Lab Data Attestation: I reviewed the patient's lab results. Labs: Lab Results 02/16/25 Range/Units 17:00 POC Urine Color Yellow POC Urine Clarity Cloudy POC Urine pH 7.0 POC Ur Specif [place] 1.025 POC Urine Protein Negative (Negative) POC Ur Glucose (UA) Negative (Negative) POC Urine Ketones Negative (Negative) POC Urine Blood Negative (Negative) POC Urine Nitrite Negative (Negative) POC Urine Bilirubin Negative (Negative) POC Urine Urobilinogen 0.2 POC U Leukocyte Esteras Negative (Negative) POC Urine HCG, Qual Negative (Negative) Critical Care Time Critical Care Time Critical Care Time: No Discharge Plan Discharge Clinical Impression: Gastritis Qualifiers: Gastritis type: unspecified gastritis Chronicity: acute Gastritis bleeding: without bleeding Qualified Code(s): K29.00 - Acute gastritis without bleeding Patient Disposition: Home Condition: Stable Instructions: Gastritis (ED) Additional Instructions: Your EKG was normal sinus rhythm. Take omeprazole as directed in the morning. You may take Tums as needed for any acid reflux or heartburn. Follow the instructions instructions on the bottle. You may take Pepcid 20 mg at night if your still having symptoms. Your urine will be sent of for a culture to determine if bacteria is causing your symptoms. If the culture shows a UTI, you will be notified and an antibiotic will be called in for you. you will need to follow up with your PCP in 3-5 days. Go to the ER for any worsening symptoms, abdominal pain, fevers, nausea, vomiting, chest pain, breathing problems, or any other concerns Patient Language: Mongolian Prescriptions: New omeprazole 40 mg capsule,delayed release(DR/EC) 40 mg PO DAILY 14 Days Qty: 14 0RF No Action Januvia 100 mg tablet levonorgest-eth.estradiol-iron 0.1 mg-0.02 mg (21)/iron (7) tablet Follow-up/Referrals: PHYSICIAN,DISPLAY MANAGER [Primary Care Provider] - Time of Disposition: 18:11
== END 2025-02-16 18:18 | disposition home or self-care (01) ==
DX: K29.00 Acute gastritis without bleeding (principal)
CPT/HCPCS: 81003; 81025; 87086; 93005; 99213; G0463